=== PATIENT | female | born 1995 | race Caucasian/White ===

== ENCOUNTER 2020-02-18 07:00 | Outpatient (CLI) | payer OTHER ==
[2020-02-18 15:46] LABS: BILIRUBIN,URINE NEGATIVE (NEGATIVE); GLUCOSE, URINE (UA) NEGATIVE (NEGATIVE); KETONES,URINE (UA) NEGATIVE (NEGATIVE); LEUKOCYTE ESTERASE, URINE NEGATIVE (NEGATIVE); NITRITE,URINE NEGATIVE (NEGATIVE); OCCULT BLOOD,URINE NEGATIVE (NEGATIVE); PH,URINE 6.5 PH (5.0-7.5); PROTEIN,URINE NEGATIVE (NEGATIVE); UROBILINOGEN,URINE 0.2 (NORMAL) E.U./dL (NORMAL)
[2020-02-18 15:53] LABS: BACTERIA,URINE None Seen /HPF (None Seen); CLARITY,URINE CLEAR (CLEAR); RBC,URINE None Seen /HPF (0-5); SQUAMOUS EPITHELIAL CELL,UR MOD Squamous (<= Few)
== END 2020-02-18 23:59 | disposition home or self-care (01) ==
LOC: LAB.R 07:00
PROVIDERS: ATTEND Nurse Practitioner Obstetrics & Gynecology
DX: Z34.90 Encounter for supervision of normal pregnancy, unspecified, unspecified trimester (principal)
CPT/HCPCS: 81001; 87086

== ENCOUNTER 2020-02-24 13:16 | Outpatient (CLI) | payer OTHER | END 2020-02-24 23:59 | disposition home or self-care (01) | LOC: LAB.WCP 13:16 | PROVIDERS: ATTEND Nurse Practitioner Obstetrics & Gynecology | DX: O20.9 Hemorrhage in early pregnancy, unspecified (principal) | CPT/HCPCS: 36415; 84702; 86900; 86901 ==

== ENCOUNTER 2020-02-26 08:24 | Outpatient (CLI) | payer OTHER ==
--- NOTE | 2020-02-26 09:18 | Ultrasound Report ---
PROCEDURE: OB First Trimester INDICATIONS: SUPERVISION OF NORMAL OUTSIDE/PRIOR DATING DATA: Last menstrual period (LMP): 01/06/2020. LMP-based estimated date of delivery (ANDREA): 10/12/2020. First dating scan (date and location): 02/26/2020. Estimated date of delivery (ANDREA) from first dating scan: 10/13/2020. TECHNIQUE: Real-time scanning was performed of the fetus and maternal pelvic organs, with image documentation. COMPARISON: FINDINGS: Embryo: There is a gestational sac at the uterine fundus measuring 2.2 cm. Within the gestational sa c there is a embryo measuring 1.1 cm. These measurements correspond to an average ultrasound age of 7 weeks 1 day. heart rate is detected at 162 bpm. Measurement variability in dating: +/- 4 weeks by LMP, +/- 7 days by mean sac diameter (use before 6 weeks gestation if crown-rump length not able to be measured), +/- 5 days by crown-rump length (6-12 weeks gestation). Maternal organs: Ovaries unremarkable. Limited images through the kidneys demonstrate no hydronephr osis. IMPRESSION: Single live intrauterine gestation with average ultrasound age of 7 weeks 1 day. Reviewed by: Berny Sanders MD on 02/26/2020 9:16 AM PST Approved by: Berny Sanders MD on 02/26/2020 9:16 AM PST Station ID: [id number]
== END 2020-02-26 08:25 | disposition home or self-care (01) ==
LOC: DI 08:24
PROVIDERS: ATTEND Obstetrics & Gynecology
DX: Z34.91 Encounter for supervision of normal pregnancy, unspecified, first trimester (principal)

== ENCOUNTER 2020-03-17 08:00 | Outpatient (CLI) | payer OTHER ==
[2020-03-17 22:12] LABS: TRICHOMONAS VAGINALIS DNA NEGATIVE (NEGATIVE)
== END 2020-03-17 23:59 | disposition home or self-care (01) ==
LOC: LAB.R 08:00
PROVIDERS: ATTEND Obstetrics & Gynecology
DX: Z11.3 Encounter for screening for infections with a predominantly sexual mode of transmission (principal)
CPT/HCPCS: 87491; 87591; 87661

== ENCOUNTER 2020-04-02 08:00 | Outpatient (CLI) | payer OTHER ==
[2020-04-02 18:12] LABS: BASOPHILS % (AUTO) 0.2 %; EOSINOPHILS # (AUTO) 0.1 10^3/uL (0.0-0.7); EOSINOPHILS % (AUTO) 0.7 %; HGB - HEMOGLOBIN 12.9 g/dL (12.0-16.0); LYMPHOCYTES # (AUTO) 2.2 10^3/uL (1.5-3.5); LYMPHOCYTES % (AUTO) 20.1 %; MEAN CORPUSCULAR HEMOGLOBIN 27.9 pg (27.0-31.0); MEAN CORPUSCULAR HGB CONC 33.9 g/dL (32.0-36.0); MEAN CORPUSCULAR VOLUME 82.5 fL (81.0-99.0); MONOCYTES # (AUTO) 0.6 10^3/uL (0.0-1.0); MONOCYTES % (AUTO) 5.3 %; NEUTROPHILS % (AUTO) 73.4 %; PLT - PLATELET COUNT 352 10^3/uL (130-450); RED BLOOD COUNT 4.62 10^6/uL (4.20-5.40); RED CELL DISTRIBUTION WIDTH 12.5 % (12.0-15.0); WHITE BLOOD COUNT 10.9 x10^3/uL (4.8-10.8)
[2020-04-02 18:16] LABS: ALBUMIN 3.7 g/dL (3.2-5.5); BILIRUBIN,TOTAL 0.5 mg/dL (0.2-1.0); CALCIUM 9.2 mg/dL (8.5-10.3); CREATININE 0.7 mg/dL (0.4-1.0); TOTAL PROTEIN 7.4 g/dL (6.7-8.2)
[2020-04-03 09:17] LABS: HIV AG/AB 4TH GEN NON-REACTIVE (NON-REACTIVE)
[2020-04-03 12:52] LABS: HEPATITIS C ANTIBODY NON-REACTIVE (NON-REACTIVE)
[2020-04-03 12:53] LABS: HEPATITIS B SURFACE ANTIGEN NON-REACTIVE (NON-REACTIVE)
== END 2020-04-02 23:59 ==
LOC: LAB.WCP 08:00
PROVIDERS: ATTEND Obstetrics & Gynecology
DX: O16.9 Unspecified maternal hypertension, unspecified trimester (principal); Z36.89 Encounter for other specified antenatal screening
CPT/HCPCS: 36415; 80053; 81599; 85025; 86592; 86762; 86787; 86803; 86850; 86900; 86901; 87340; 87389

== ENCOUNTER 2020-04-04 07:00 | Outpatient (CLI) | payer OTHER ==
[2020-04-04 14:16] LABS: CREATININE 24 HOUR,URINE 1632 mg/24h (600-1800); CREATININE,URINE 61.6 mg/dL; TOTAL VOLUME 24HRS,URINE 2650 mL
[2020-04-04 14:18] LABS: TOTAL PROTEIN,URINE TIMED < 6 mg/dL
== END 2020-04-04 23:59 | disposition home or self-care (01) ==
LOC: LAB.R 07:00
PROVIDERS: ATTEND Obstetrics & Gynecology
DX: O16.9 Unspecified maternal hypertension, unspecified trimester (principal)
CPT/HCPCS: 82570; 84156

== ENCOUNTER 2020-04-23 08:00 | Outpatient (CLI) | payer OTHER ==
[2020-04-27 08:16] LABS: AFP MOM 1.72; AGE RISK DOWN SYNDROME 1 IN 1040; CALC'D GESTATIONAL AGE 15.4 weeks; CIGARETTE SMOKER? NOT GIVEN; DONOR AGE: EGG RETRIEVAL NOT GIVEN; DONOR EGG NO; ESTRIOL MOM 1.46; HCG MOM 1.63; HX OF NEURAL TUBE DEFECTS NO; INHIBIN A MOM 0.98; INSULIN DEPEND DIABETIC NO; MATERNAL WEIGHT 244 lbs; MSS DOWN SYNDROME RISK <1 IN 5000; MSS3 TRISOMY 18 RISK <1 IN 5000; NUMBER OF FETUSES 1; PREV PREGNANCY DOWN SYND NO; RISK FOR ONTD 1 IN 1551
== END 2020-04-23 23:59 | disposition home or self-care (01) ==
LOC: LAB.WCP 08:00
PROVIDERS: ATTEND Obstetrics & Gynecology
DX: O09.90 Supervision of high risk pregnancy, unspecified, unspecified trimester (principal); O16.9 Unspecified maternal hypertension, unspecified trimester; Z36.89 Encounter for other specified antenatal screening
CPT/HCPCS: 36415; 81220; 81243; 81329; 81511; 81599

== ENCOUNTER 2020-05-27 13:55 | Outpatient (CLI) | payer OTHER ==
--- NOTE | 2020-05-28 17:18 | Ultrasound Report ---
PROCEDURE: OB Detailed Eval INDICATIONS: SCREENING, HIGH RISK OUTSIDE/PRIOR DATING DATA: Last menstrual period (LMP): 01/06/2020. LMP-based estimated date of delivery (ANDREA): 10/12/2020. First dating scan (date and location): 02/26/2020. Estimated date of delivery (ANDREA) from first dating scan: 10/13/2020. Provider stated ANDREA is 10/12/2020. TECHNIQUE: Real-time scanning was performed of the fetus, with image documentation and biometric measurements. Endovaginal scanning: No COMPARISON: None. FINDINGS: General: A single living intrauterine gestation is present. Presentation: Transverse Placenta: Placental position is posterior fundal, without previa. Amniotic fluid index: 15.2 cm, normal for gestational age. heart rate: 141 beats per minute. Maternal cervical canal: 3.9 cm long; normal length is 2.5 cm or more. biometrics: Biparietal diameter: 20 weeks due to Head circumference: 20 weeks 3 days Abdominal circumference: 20 weeks 2 days Femur length: 20 weeks 1 day Estimated gestational age from initial scan: not applicable. Composite gestational age from present scan: 20 weeks 2 days Estimated weight and percentile: 341 g; 42nd percentile Measurement variability in biometric dating: +/- 10 days from 12-20 weeks gestation, +/- 2 weeks from 20-30 weeks gestation, +/- 3 weeks at 30 weeks gestation or later. Anatomic survey: Neuro: Ventricles are normal at less than 10 mm. Cisterna magna is normal at 3-11 mm. Cerebellum i s normal in size and morphology. Nuchal skin fold: Normal at less than 6 mm between 14 and 20 weeks gestational age. Face: Nose and lips, facial profile are normal. Spine: No evidence for spina bifida. Heart: Suboptimally visualized. Diaphragm: Suboptimally visualized. Stomach: Left-sided stomach is present. Kidneys: Suboptimally visualized. Cord: 3 vessel cord has orthotopic insertion. Bladder: Normal in size. Extremities: All 4 extremities are visualized. IMPRESSION: Single living IUP redemonstrated and interval growth is normal. heart diaphragm and kidneys not well visualized; otherwise normal anatomy. Follow-up sherie mmended. Reviewed by: EFRAÍN Gross on 05/28/2020 5:17 PM PDT Approved by: Joaquin Rdz MD on 05/28/2020 5:17 PM PDT Station ID: [id number]
== END 2020-05-27 13:56 | disposition home or self-care (01) ==
LOC: DI 13:55
PROVIDERS: ATTEND Obstetrics & Gynecology
DX: O09.92 Supervision of high risk pregnancy, unspecified, second trimester (principal); Z36.89 Encounter for other specified antenatal screening; Z3A.20 20 weeks gestation of pregnancy

== ENCOUNTER 2020-06-11 14:09 | Outpatient (CLI) | payer OTHER ==
--- NOTE | 2020-06-11 16:28 | Ultrasound Report ---
PROCEDURE: OB F/U or Repeat INDICATIONS: SUPERVISION HIGH RISK OUTSIDE/PRIOR DATING DATA: Last menstrual period (LMP): 01/06/2020. LMP-based estimated date of delivery (ANDREA): 10/12/2020. First dating scan (date and location): 02/26/2020. Estimated date of delivery (ANDREA) from first dating scan: 10/13/2020. TECHNIQUE: Real-time scanning was performed of the fetus, with image documentation and biometric measurements. Endovaginal scanning: Not performed COMPARISON: None. FINDINGS: General: A single living intrauterine gestation is present. Presentation: Transverse with head to maternal left Placenta: Placental position is posterior fundal, without previa. Amniotic fluid index: 12.6 cm, 25th percentile for gestational age. heart rate: 141 beats per minute. Maternal cervical canal: 5.1 cm long; normal length is 2.5 cm or more. Estimated gestational age from initial scan: 22 weeks 3 days Other: Limited survey of anatomy is limited by maternal body habitus and position, and in cludes grossly normal four-chamber heart, left and right ventricular outflow tracts, and bilateral re nal regions. IMPRESSION: 1. Single living intrauterine gestation. 2. Limited but grossly normal evaluation of the heart, ventricular outflow tracts, and kidneys. Reviewed by: Tariq Rushing MD on 06/11/2020 4:27 PM PDT Approved by: Tariq Rushing MD on 06/11/2020 4:27 PM PDT Station ID: [id number]
== END 2020-06-11 14:10 | disposition home or self-care (01) ==
LOC: DI 14:09
PROVIDERS: ATTEND Obstetrics & Gynecology
DX: O09.92 Supervision of high risk pregnancy, unspecified, second trimester (principal); Z3A.22 22 weeks gestation of pregnancy

== ENCOUNTER 2020-07-22 08:00 | Outpatient (CLI) | payer OTHER ==
[2020-07-22 12:01] LABS: HCT - HEMATOCRIT 37.2 % (37.0-47.0); HGB - HEMOGLOBIN 12.6 g/dL (12.0-16.0); MEAN CORPUSCULAR HEMOGLOBIN 28.2 pg (27.0-31.0); MEAN CORPUSCULAR HGB CONC 33.9 g/dL (32.0-36.0); MEAN CORPUSCULAR VOLUME 83.2 fL (81.0-99.0); MEAN PLATELET VOLUME 9.8 fL (7.9-10.8); RED BLOOD COUNT 4.47 10^6/uL (4.20-5.40); WHITE BLOOD COUNT 9.9 x10^3/uL (4.8-10.8)
== END 2020-07-22 23:59 | disposition home or self-care (01) ==
LOC: LAB.WCP 08:00
PROVIDERS: ATTEND Obstetrics & Gynecology
DX: Z36.89 Encounter for other specified antenatal screening (principal)
CPT/HCPCS: 36415; 82950; 85027

== ENCOUNTER 2020-08-20 12:07 | Outpatient (CLI) | payer OTHER ==
[2020-08-20 12:35] LABS: BILIRUBIN,URINE NEGATIVE (NEGATIVE); GLUCOSE, URINE (UA) NEGATIVE (NEGATIVE); KETONES,URINE (UA) NEGATIVE (NEGATIVE); LEUKOCYTE ESTERASE, URINE NEGATIVE (NEGATIVE); NITRITE,URINE NEGATIVE (NEGATIVE); OCCULT BLOOD,URINE NEGATIVE (NEGATIVE); PROTEIN,URINE NEGATIVE (NEGATIVE); UROBILINOGEN,URINE 0.2 (NORMAL) E.U./dL (NORMAL)
[2020-08-20 12:40] LABS: CLARITY,URINE CLEAR (CLEAR)
[2020-08-20 12:54] LABS: CREATININE,URINE 87.2 mg/dL; PROTEIN/CREATININE RATIO,URINE 0.1 (<=0.2)
[2020-08-20 12:57] LABS: BASOPHILS % (AUTO) 0.2 %; EOSINOPHILS # (AUTO) 0.1 10^3/uL (0.0-0.7); EOSINOPHILS % (AUTO) 0.5 %; HCT - HEMATOCRIT 38.2 % (37.0-47.0); HGB - HEMOGLOBIN 12.9 g/dL (12.0-16.0); LYMPHOCYTES # (AUTO) 2.1 10^3/uL (1.5-3.5); LYMPHOCYTES % (AUTO) 17.1 %; MEAN CORPUSCULAR HEMOGLOBIN 27.6 pg (27.0-31.0); MEAN CORPUSCULAR HGB CONC 33.8 g/dL (32.0-36.0); MEAN CORPUSCULAR VOLUME 81.8 fL (81.0-99.0); MEAN PLATELET VOLUME 9.4 fL (7.9-10.8); MONOCYTES # (AUTO) 0.7 10^3/uL (0.0-1.0); MONOCYTES % (AUTO) 6.1 %; NEUTROPHILS # (AUTO) 9.2 10^3/uL (1.5-6.6); NEUTROPHILS % (AUTO) 75.9 %; PLT - PLATELET COUNT 355 10^3/uL (130-450); RED BLOOD COUNT 4.67 10^6/uL (4.20-5.40); RED CELL DISTRIBUTION WIDTH 12.3 % (12.0-15.0); WHITE BLOOD COUNT 12.1 x10^3/uL (4.8-10.8)
[2020-08-20 13:09] LABS: ALBUMIN 3.4 g/dL (3.2-5.5); ALBUMIN/GLOBULIN RATIO 0.8 (1.0-2.2); BILIRUBIN,TOTAL 0.4 mg/dL (0.2-1.0); CALCIUM 9.8 mg/dL (8.5-10.3); CREATININE 0.8 mg/dL (0.4-1.0); POTASSIUM 4.1 mmol/L (3.5-5.0); TOTAL PROTEIN 7.6 g/dL (6.7-8.2)
--- NOTE | 2020-08-20 13:24 | PROVIDER PROGRESS NOTE ---
- HPI Chief Complaint: Hypertension/PIH Current : Current EDU 10/12/20 Gestation 32 Weeks and 3 Days 1 Para 0 Vital Signs Temperature 99.1 F 08/20/20 12:18 Heart Rate 82 08/20/20 12:18 Respiratory Rate 22 08/20/20 12:18 Blood Pressure 123/94 H 08/20/20 12:18 O2 Saturation 100 08/20/20 12:18 Temperature 99.1 F 08/20/20 12:18 Heart Rate 82 08/20/20 12:18 Respiratory Rate 22 08/20/20 12:18 Blood Pressure 119/79 08/20/20 12:37 O2 Saturation 100 08/20/20 12:18 - Exam 25 yo at 32 05/09.Patient woke up with left sided headache that progressed and she felt her vision became blurry. She took her labetalol and waited 2 hours and blood pressure was 140/90. Patient states her vision is no longer blurry and her headache is currently gone. Patient reports good movement. Patient denies contractions, SROM, or vaginal bleeding.Patient feels like hands and face are swollen today. Her ankles and feet are not. Patient has had CHTN prior to becoming . Patient has been on Labetalol 100mg BID and baby aspirin throughout the . O-117/62, 127/76, 119/79, 107/70. General: Patient is resting comfortably and is not in distress. Chest: Clear to auscultation. No rales, wheezes or rhonchi. Good breath sounds in all garcia. Heart: RRR without murmur or gallop. Abdomen: Soft, non-tender to palpation, gravid. Ext:No edema pretibial DTR's: Could not illicit reflex, not hyperreflexic. Labs: Protein/Creatinine ratio is 0.1. Monitor strip: Baseline 130bpm with moderate variability and accelerations 15X15 present. No decelerations. No contractions. Category I monitor strip. Reactive NST. A-IUP 32 05/09, Chronic Hypertension P- Increase Labetalol to 200mg po BID and 100mg at bedtime. Keep all scheduled appointments. Call for any problems. - Procedures NST Procedure: NST Procedure Start Date 08/20/20 Start Time 12:20 Stop Time 13:00 Vibroacoustic Stimulation Used No Patient States Movement Yes
[2020-08-20 13:55] VITALS: BP 117/83
== END 2020-08-20 13:55 | disposition home or self-care (01) ==
LOC: WFO 12:07 → FBP 12:08 → WFO 13:55
PROVIDERS: ATTEND Obstetrics & Gynecology
DX: O10.913 Unspecified pre-existing hypertension complicating pregnancy, third trimester (principal); Z3A.32 32 weeks gestation of pregnancy; Z79.82 Long term (current) use of aspirin; Z79.899 Other long term (current) drug therapy
CPT/HCPCS: 36415; 59025; 80053; 81001; 81003; 82570; 84156; 85025; 87086; 99215

== ENCOUNTER 2020-08-30 08:07 | Outpatient (CLI) | payer OTHER ==
[2020-08-30 08:55] LABS: BASOPHILS % (AUTO) 0.1 %; EOSINOPHILS # (AUTO) 0.1 10^3/uL (0.0-0.7); EOSINOPHILS % (AUTO) 0.7 %; HCT - HEMATOCRIT 36.2 % (37.0-47.0); HGB - HEMOGLOBIN 12.4 g/dL (12.0-16.0); LYMPHOCYTES # (AUTO) 1.7 10^3/uL (1.5-3.5); LYMPHOCYTES % (AUTO) 18.9 %; MEAN CORPUSCULAR HEMOGLOBIN 27.9 pg (27.0-31.0); MEAN CORPUSCULAR HGB CONC 34.3 g/dL (32.0-36.0); MEAN CORPUSCULAR VOLUME 81.3 fL (81.0-99.0); MEAN PLATELET VOLUME 9.4 fL (7.9-10.8); MONOCYTES # (AUTO) 0.4 10^3/uL (0.0-1.0); MONOCYTES % (AUTO) 4.6 %; NEUTROPHILS # (AUTO) 6.6 10^3/uL (1.5-6.6); NEUTROPHILS % (AUTO) 75.4 %; PLT - PLATELET COUNT 296 10^3/uL (130-450); RED BLOOD COUNT 4.45 10^6/uL (4.20-5.40); RED CELL DISTRIBUTION WIDTH 12.4 % (12.0-15.0); WHITE BLOOD COUNT 8.7 x10^3/uL (4.8-10.8)
[2020-08-30 09:08] LABS: ALBUMIN 3.1 g/dL (3.2-5.5); ALBUMIN/GLOBULIN RATIO 0.8 (1.0-2.2); BILIRUBIN,TOTAL 0.2 mg/dL (0.2-1.0); CALCIUM 9.1 mg/dL (8.5-10.3); CREATININE 0.7 mg/dL (0.4-1.0); POTASSIUM 4.1 mmol/L (3.5-5.0); TOTAL PROTEIN 7.1 g/dL (6.7-8.2)
[2020-08-30 09:45] LABS: CREATININE,URINE 81.9 mg/dL
[2020-08-30 09:46] LABS: TOTAL PROTEIN,URINE TIMED < 6 mg/dL
[2020-08-30 10:03] VITALS: BP 106/67
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
== END 2020-08-30 10:35 | disposition home or self-care (01) ==
LOC: WFO 08:07 → FBP 08:09 → WFO 10:35
PROVIDERS: ATTEND Obstetrics & Gynecology
DX: O99.891 Other specified diseases and conditions complicating pregnancy (principal); R03.0 Elevated blood-pressure reading, without diagnosis of hypertension; R51.9 Headache, unspecified; O16.3 Unspecified maternal hypertension, third trimester; Z3A.33 33 weeks gestation of pregnancy; Z79.899 Other long term (current) drug therapy; Z79.82 Long term (current) use of aspirin
CPT/HCPCS: 36415; 59025; 80053; 82570; 84156; 85025; 99214; 99215

== ENCOUNTER 2020-09-08 12:10 | Outpatient (CLI) | payer OTHER ==
[2020-09-08 13:07] LABS: BASOPHILS % (AUTO) 0.2 %; EOSINOPHILS # (AUTO) 0.1 10^3/uL (0.0-0.7); EOSINOPHILS % (AUTO) 0.6 %; HCT - HEMATOCRIT 37.6 % (37.0-47.0); HGB - HEMOGLOBIN 12.5 g/dL (12.0-16.0); LYMPHOCYTES # (AUTO) 2.1 10^3/uL (1.5-3.5); LYMPHOCYTES % (AUTO) 20.5 %; MEAN CORPUSCULAR HEMOGLOBIN 27.3 pg (27.0-31.0); MEAN CORPUSCULAR HGB CONC 33.2 g/dL (32.0-36.0); MEAN CORPUSCULAR VOLUME 82.1 fL (81.0-99.0); MEAN PLATELET VOLUME 10.8 fL (7.9-10.8); MONOCYTES # (AUTO) 0.6 10^3/uL (0.0-1.0); MONOCYTES % (AUTO) 6.1 %; NEUTROPHILS # (AUTO) 7.2 10^3/uL (1.5-6.6); NEUTROPHILS % (AUTO) 72.2 %; PLT - PLATELET COUNT 205 10^3/uL (130-450); RED BLOOD COUNT 4.58 10^6/uL (4.20-5.40); RED CELL DISTRIBUTION WIDTH 12.8 % (12.0-15.0)
[2020-09-08 13:11] LABS: ALBUMIN 3.3 g/dL (3.2-5.5); ALBUMIN/GLOBULIN RATIO 0.8 (1.0-2.2); BILIRUBIN,TOTAL 0.4 mg/dL (0.2-1.0); CALCIUM 9.4 mg/dL (8.5-10.3); CREATININE 0.8 mg/dL (0.4-1.0); TOTAL PROTEIN 7.7 g/dL (6.7-8.2)
[2020-09-08 13:12] LABS: POTASSIUM 4.4 mmol/L (3.5-5.0)
[2020-09-08 13:56] LABS: CREATININE,URINE 59.5 mg/dL
[2020-09-08 14:25] LABS: TOTAL PROTEIN,URINE TIMED < 6 mg/dL
[2020-09-08 15:17] VITALS: BP 120/76
--- NOTE | 2020-09-08 15:27 | Ultrasound Report ---
PROCEDURE: OB F/U or Repeat INDICATIONS: CHTN in OUTSIDE/PRIOR DATING DATA: Last menstrual period (LMP): 01/06/2020. LMP-based estimated date of delivery (ANDREA): 10/12/2020. First dating scan (date and location): 12/27/2019. Estimated date of delivery (ANDREA) from first dating scan: 10/13/2020. The below data below was generated using the clinical ANDREA of 10/12/2020 TECHNIQUE: Real-time scanning was performed of the fetus, with image documentation and biometric measurements. COMPARISON: OB ultrasound 05/27/2020, 06/11/2020, 02/26/2020 FINDINGS: General: A single living intrauterine gestation is present. Presentation: Vertex Placenta: Placental position is posterior, without previa. Amniotic fluid index: 13.5 cm, largest pocket 4.4 cm. heart rate: 127 beats per minute. Maternal cervical canal: 3.1 cm long; normal length is 2.5 cm or more. biometrics: Biparietal diameter: 8.6 cm 34 weeks 4 Head circumference: 31.6 cm 35 weeks 3 days Abdominal circumference: 29.1 cm 33 weeks 1 day Femur length: 6.7 cm 34 weeks 5 days Estimated gestational age from initial scan: 35 weeks 1 day Composite gestational age from present scan: 34 weeks 1 day Estimated weight and percentile: 2301 g 17th percentile Measurement variability in biometric dating: +/- 10 days from 12-20 weeks gestation, +/- 2 weeks from 20-30 weeks gestation, +/- 3 weeks at 30 weeks gestation or more. Other: Not applicable. IMPRESSION: 1. Single live intrauterine with ultrasound gestational age today of 34 weeks 1 day. 2. BEAU measures 13.5 cm with largest pocket measuring 4.4 cm. 3. Growth is at the 17th percentile. It is noted at the 42nd percentile on 05/27/2020 and not calculat ed on 06/11/2020. Reviewed by: Pallavi Anderson MD on 09/08/2020 3:25 PM PDT Approved by: Pallavi Anderson MD on 09/08/2020 3:25 PM PDT Station ID: [id number]
--- NOTE | 2020-09-11 15:46 | PROVIDER PROGRESS NOTE ---
- HPI Chief Complaint: Hypertension/PIH Current : Current EDU 10/12/20 Gestation 35 Weeks and 1 Days 1 Para 0 Vital Signs Heart Rate 75 09/08/20 12:19 Respiratory Rate 17 09/08/20 12:19 Blood Pressure 108/67 09/08/20 12:19 Temperature Heart Rate 78 09/08/20 14:15 Respiratory Rate 17 09/08/20 12:19 Blood Pressure 120/76 09/08/20 14:15 O2 Saturation - Exam VS 78 17 123/84 GEN: NAD HEAD: NCAT EYES: No scleral icterus or conjunctival injection CV: RRR RESP: CTAB, normal effort ABD: gravid, S&NT/ND PSYCH: appropriate affect NEURO: alert and oriented, normal gait and coordination EXT: WWP - Procedures OB Procedure Performed: NST Diagnosis/Indication for NST: Pre- Hypertension NST Procedure: NST Procedure Start Date 09/08/20 Start Time 12:20 Stop Time 13:53 Vibroacoustic Stimulation Used No Patient States Movement Yes EFM 120 mod jocy 15x15 accels no decels TOCO; quiet Service Date of procedure: 09/08/20 - Plan Plan: Patient is a 25 yo at 35+1 wga with CHTN on a beta deo Seen in clinic with BP of 138/110 and persistently elevated on repeat exam. Sent to triage for pre-e evaluation. BPs wnl over 2 hours of observation. PIH labs wnl Neg P:C Formal us showed EFW 17%ile and BEAU 13.5 Negative evaluation for CHTN with ENRRIQUE -Recommend twice weekly NST and weekly BEAU -IOL at 39 weeks in the absence of PE with ssevere features -No change in labetalol dosing DX: IUP at 35+1 CHTN DOS: 09/08/20 NST read 09/08/20
== END 2020-09-08 15:06 | disposition home or self-care (01) ==
LOC: WFO 12:10 → FBP 12:13 → WFO 15:06
PROVIDERS: ATTEND Obstetrics & Gynecology
DX: O10.913 Unspecified pre-existing hypertension complicating pregnancy, third trimester (principal); Z3A.35 35 weeks gestation of pregnancy
CPT/HCPCS: 36415; 59025; 80053; 82570; 84156; 85025; 99215

== ENCOUNTER 2020-09-14 13:03 | Outpatient (CLI) | payer OTHER ==
[2020-09-14 13:34] VITALS: BP 118/86
--- NOTE | 2020-09-14 16:10 | PROCEDURE REPORT ---
- HPI Diagnosis/Indication for NST: Gestational Hypertension Current EDU 10/12/20 Gestation 36 Weeks and 0 Days 1 Para 0 Vital Signs Temperature 98.2 F 09/14/20 13:15 Heart Rate 81 09/14/20 13:15 Respiratory Rate 18 09/14/20 13:15 Blood Pressure 118/86 H 09/14/20 13:15 O2 Saturation 97 09/14/20 13:15 Temperature 98.2 F 09/14/20 13:15 Heart Rate 81 09/14/20 13:15 Respiratory Rate 18 09/14/20 13:15 Blood Pressure 118/86 H 09/14/20 13:15 O2 Saturation 97 09/14/20 13:15 - NST Procedure NST Procedure Start Date 09/14/20 Start Time 13:14 Stop Time 13:38 Vibroacoustic Stimulation Used No Patient States Movement Yes EFM 125 mod jocy 15x15 accels no decels TOCO: quiet - Results and Plan Findings/Impression: 25 yo at 36+0 wga with affected by GHTN here for NST Cat I tracing Cont with twice weekyl NSt and weekly BEAU DX: GHTN IUP at 36+0 wga NST read 09/14/20 DOS: 09/14/20
== END 2020-09-14 13:43 | disposition home or self-care (01) ==
LOC: WFO 13:03 → FBP 13:07 → WFO 13:43
PROVIDERS: ATTEND Obstetrics & Gynecology
DX: O13.3 Gestational [pregnancy-induced] hypertension without significant proteinuria, third trimester (principal); Z3A.36 36 weeks gestation of pregnancy
CPT/HCPCS: 59025

== ENCOUNTER 2020-09-17 15:34 | Outpatient (CLI) | payer OTHER ==
--- NOTE | 2020-09-17 17:01 | Ultrasound Report ---
PROCEDURE: OB Limited INDICATIONS: SUPERVISION HIGH RISK PRENANCY OUTSIDE/PRIOR DATING DATA: Last menstrual period (LMP): 01/06/2020. LMP-based estimated date of delivery (ANDREA): 10/12/2020. First dating scan (date and location): 02/26/2020. Luis Eduardo Corona. Estimated date of delivery (ANDREA) from first dating scan: 10/13/2020. The below data below was generated using the provider stated ANDREA of 10/12/2020 None. TECHNIQUE: Real-time scanning was performed of the fetus, with image documentation. Endovaginal scanning: COMPARISON: FINDINGS: A single living intrauterine gestation is present. Presentation: Vertex Placenta: Placental position is posterior, without previa. Amniotic fluid index: 8.6 cm. Largest pocket is 3.9 cm. heart rate: 133 beats per minutes. Maternal cervical canal: 2.6 cm long; normal length is 2.5 cm or more. Estimated gestational age from initial scan: 36 weeks 3 days. anatomy: The chest/diaphragm, stomach/abdomen, right renal region, left renal region, and urin ozzy bladder/pelvis were evaluated on this study and have a normal appearance. IMPRESSION: 1. Amniotic fluid index is at the low limits of normal measuring 8.6 cm. Deepest pocket is 3.9 cm. 2. The cervix is not well seen but measures approximately 2.6 cm in length. Reviewed by: Conrad Park on 09/17/2020 5:00 PM PDT Approved by: Conrad Park on 09/17/2020 5:00 PM PDT Station ID: [id number]
== END 2020-09-17 15:35 | disposition home or self-care (01) ==
LOC: DI 15:34
PROVIDERS: ATTEND Obstetrics & Gynecology
DX: O09.90 Supervision of high risk pregnancy, unspecified, unspecified trimester (principal); O16.3 Unspecified maternal hypertension, third trimester; Z3A.36 36 weeks gestation of pregnancy

== ENCOUNTER 2020-09-17 16:28 | Outpatient (CLI) | payer OTHER ==
[2020-09-17 16:47] VITALS: BP 115/85
--- NOTE | 2020-09-18 13:30 | PROCEDURE REPORT ---
- HPI Diagnosis/Indication for NST: Pre- Hypertension Current EDU 10/12/20 Gestation 36 Weeks and 3 Days 1 Para 0 Vital Signs Heart Rate 84 09/17/20 16:45 Respiratory Rate 18 09/17/20 16:45 Blood Pressure 115/85 H 09/17/20 16:45 O2 Saturation 97 09/17/20 16:45 Temperature Heart Rate 84 09/17/20 16:45 Respiratory Rate 18 09/17/20 16:45 Blood Pressure 115/85 H 09/17/20 16:45 O2 Saturation 97 09/17/20 16:45 - NST Procedure NST Procedure Start Date 09/17/20 Start Time 16:40 Stop Time 17:10 Vibroacoustic Stimulation Used No Patient States Movement Yes 25yo 36 3/7 with Pre- Hypertension presents for NST. NST: Baseline 135bpm, Moderate variability and accelerations are present. No Deceleraation. NST is Reactive and Category I Patient to continue current medications and follow-up as scheduled. - Results and Plan Findings/Impression: Reactive NST Follow-up as scheduled.
== END 2020-09-17 17:15 | disposition home or self-care (01) ==
LOC: WFO 16:28 → FBP 16:34 → WFO 17:15
PROVIDERS: ATTEND Obstetrics & Gynecology
DX: O10.913 Unspecified pre-existing hypertension complicating pregnancy, third trimester (principal); O09.93 Supervision of high risk pregnancy, unspecified, third trimester; Z3A.36 36 weeks gestation of pregnancy
CPT/HCPCS: 59025

== ENCOUNTER 2020-09-21 13:12 | Outpatient (CLI) | payer OTHER ==
[2020-09-21 13:29] VITALS: BP 112/57
--- NOTE | 2020-09-21 17:11 | PROCEDURE REPORT ---
- HPI Diagnosis/Indication for NST: Pre- Hypertension Current EDU 10/12/20 Gestation 37 Weeks and 0 Days 1 Para 0 Vital Signs Temperature 98.4 F 09/21/20 13:25 Heart Rate 89 09/21/20 13:25 Respiratory Rate 18 09/21/20 13:25 Blood Pressure 112/57 L 09/21/20 13:25 O2 Saturation 97 09/21/20 13:25 Temperature 98.4 F 09/21/20 13:25 Heart Rate 89 09/21/20 13:25 Respiratory Rate 18 09/21/20 13:25 Blood Pressure 112/57 L 09/21/20 13:25 O2 Saturation 97 09/21/20 13:25 - NST Procedure NST Procedure Start Date 09/21/20 Start Time 13:24 Stop Time 13:48 Vibroacoustic Stimulation Used No Patient States Movement Yes Patient is without complaints. Patient is taking her 1abetalol. at 37 0/7 weeks today. Patient reports good movement. O- BP is 112/57 NST: Baseline is 135, moderate variability. Accelerations 15X15 present. No decelerations. No contractions. Reactive NST that is Categoy I. - Results and Plan Findings/Impression: IUP 37 0/7 with Chronic Hypertension prior to . P- Follow-up with Dr. Brizuela as scheduled tomorrow. Continue twice weekly NSTs. Call for any problems or concerns.
== END 2020-09-21 13:50 | disposition home or self-care (01) ==
LOC: WFO 13:12 → FBP 13:15 → WFO 13:50
PROVIDERS: ATTEND Obstetrics & Gynecology
DX: O10.913 Unspecified pre-existing hypertension complicating pregnancy, third trimester (principal); Z3A.37 37 weeks gestation of pregnancy
CPT/HCPCS: 59025

== ENCOUNTER 2020-09-22 08:00 | Outpatient (CLI) | payer OTHER | END 2020-09-22 23:59 | disposition home or self-care (01) | LOC: LAB.WC 08:00 | PROVIDERS: ATTEND Obstetrics & Gynecology | DX: Z36.85 Encounter for antenatal screening for Streptococcus B (principal) | CPT/HCPCS: 87081; 87797 ==

== ENCOUNTER 2020-09-22 09:38 | Outpatient (CLI) | payer OTHER ==
[2020-09-22 10:25] LABS: BASOPHILS % (AUTO) 0.2 %; EOSINOPHILS # (AUTO) 0.1 10^3/uL (0.0-0.7); EOSINOPHILS % (AUTO) 0.7 %; HCT - HEMATOCRIT 35.7 % (37.0-47.0); HGB - HEMOGLOBIN 12.2 g/dL (12.0-16.0); LYMPHOCYTES # (AUTO) 1.7 10^3/uL (1.5-3.5); LYMPHOCYTES % (AUTO) 19.8 %; MEAN CORPUSCULAR HEMOGLOBIN 27.9 pg (27.0-31.0); MEAN CORPUSCULAR HGB CONC 34.2 g/dL (32.0-36.0); MEAN CORPUSCULAR VOLUME 81.5 fL (81.0-99.0); MEAN PLATELET VOLUME 9.8 fL (7.9-10.8); MONOCYTES # (AUTO) 0.7 10^3/uL (0.0-1.0); MONOCYTES % (AUTO) 7.5 %; NEUTROPHILS # (AUTO) 6.2 10^3/uL (1.5-6.6); NEUTROPHILS % (AUTO) 71.5 %; PLT - PLATELET COUNT 322 10^3/uL (130-450); RED BLOOD COUNT 4.38 10^6/uL (4.20-5.40); WHITE BLOOD COUNT 8.7 x10^3/uL (4.8-10.8)
[2020-09-22 10:29] LABS: CREATININE,URINE 295.9 mg/dL; PROTEIN/CREATININE RATIO,URINE 0.1 (<=0.2)
[2020-09-22 10:38] LABS: ALBUMIN/GLOBULIN RATIO 0.8 (1.0-2.2); BILIRUBIN,TOTAL 0.4 mg/dL (0.2-1.0); CALCIUM 9.4 mg/dL (8.5-10.3); CREATININE 0.8 mg/dL (0.4-1.0); POTASSIUM 4.2 mmol/L (3.5-5.0)
[2020-09-22 10:51] VITALS: BP 122/69
--- NOTE | 2020-10-04 19:44 | PROCEDURE REPORT ---
- HPI Diagnosis/Indication for NST: Pre- Hypertension Current EDU 10/12/20 Gestation 37 Weeks and 1 Days 1 Para 0 Vital Signs Temperature 98.2 F 09/22/20 09:51 Heart Rate 96 09/22/20 09:51 Respiratory Rate 17 09/22/20 09:51 Blood Pressure 130/94 H 09/22/20 09:51 O2 Saturation 97 09/22/20 09:51 Temperature 98.2 F 09/22/20 09:51 Heart Rate 96 09/22/20 09:51 Respiratory Rate 17 09/22/20 09:51 Blood Pressure 122/69 09/22/20 10:49 O2 Saturation 97 09/22/20 09:51 - NST Procedure NST Procedure Start Date 09/22/20 Start Time 09:50 Stop Time 10:10 Vibroacoustic Stimulation Used No Patient States Movement Yes EFM 135 mod jocy 15x15 accels no decels TOCO: quiet - Results and Plan Findings/Impression: Patient is a 25 yo at 37+1 wga with complicated by chronic hypertension here for NST Cat I tracing Cont with twice weekly NST and weekly BEAU Plan for IOL at 39 wga in the absence of ENRRIQUE DX: IUP at 37+1 wga Chronic hypertension NST read on 09/22/20 DOS 09/22/20
== END 2020-09-22 11:10 | disposition home or self-care (01) ==
LOC: WFO 09:38 → FBP 09:40 → WFO 11:10
PROVIDERS: ATTEND Obstetrics & Gynecology
DX: O10.913 Unspecified pre-existing hypertension complicating pregnancy, third trimester (principal); Z3A.37 37 weeks gestation of pregnancy; Z36.85 Encounter for antenatal screening for Streptococcus B
CPT/HCPCS: 36415; 59025; 80053; 82570; 84156; 85025; 87081; 87797; 99214; 99215

== ENCOUNTER 2020-09-24 15:29 | Outpatient (CLI) | payer OTHER ==
--- NOTE | 2020-09-24 16:20 | Ultrasound Report ---
PROCEDURE: OB Limited INDICATIONS: SUPERVISION OF HIGH RISK OUTSIDE/PRIOR DATING DATA: Last menstrual period (LMP): 01/06/2020. LMP-based estimated date of delivery (ANDREA): 10/12/2020. First dating scan (date and location): 02/26/2020. Estimated date of delivery (ANDREA) from first dating scan: 10/13/2020. The below data below was generated using the above ANDREA of 10/13/2020 TECHNIQUE: Real-time scanning was performed of the fetus, with image documentation. Endovaginal scanning: Not needed COMPARISON: Prior OB ultrasounds for this . FINDINGS: A single living intrauterine gestation is present. Presentation: Vertex Placenta: Placental position is posterior, without previa. Amniotic fluid index: 14.2 cm, normal for gestational age. heart rate: 138 beats per minutes. Maternal cervical canal is not well seen due to vertex presentation of the fetus. Estimated gestational age from initial scan: 37 weeks 3 days. IMPRESSION: Single living intrauterine gestation with normal amniotic fluid volume, posterior placen ta without previa and vertex presentation. Reviewed by: Joaquin Rdz MD on 09/24/2020 4:18 PM PDT Approved by: Joaquin Rdz MD on 09/24/2020 4:18 PM PDT Station ID: [id number]
== END 2020-09-24 15:30 | disposition home or self-care (01) ==
LOC: DI 15:29
PROVIDERS: ATTEND Obstetrics & Gynecology
DX: O09.93 Supervision of high risk pregnancy, unspecified, third trimester (principal); O16.3 Unspecified maternal hypertension, third trimester; Z3A.37 37 weeks gestation of pregnancy

== ENCOUNTER 2020-09-24 16:03 | Outpatient (CLI) | payer OTHER ==
[2020-09-24 16:22] VITALS: BP 137/82
--- NOTE | 2020-09-25 09:49 | PROCEDURE REPORT ---
- HPI Diagnosis/Indication for NST: Pre- Hypertension Current EDU 10/12/20 Gestation 37 Weeks and 3 Days 1 Para 0 Vital Signs Temperature 98.3 F 09/24/20 16:17 Heart Rate 72 09/24/20 16:17 Respiratory Rate 16 09/24/20 16:17 Blood Pressure 137/82 H 09/24/20 16:17 Temperature 98.3 F 09/24/20 16:17 Heart Rate 72 09/24/20 16:17 Respiratory Rate 16 09/24/20 16:17 Blood Pressure 137/82 H 09/24/20 16:17 O2 Saturation - NST Procedure NST Procedure Start Date 09/24/20 Start Time 16:15 Stop Time 16:44 Vibroacoustic Stimulation Used No Patient States Movement Yes 25yo at 37 3/7 here for NST due to Pre- CHTN. Patient reports good movement. Patient is not feeling contractions. NST: Baseline 130 with moderate Variability. Accelerations 15X15 present. No decelrations. Reactive NST and Category I monitor strip. A-IUP 37 3/7 with CHTN, P- Continue scheduled monitoring and keep all appointments. Call for any problems.
== END 2020-09-24 16:45 | disposition home or self-care (01) ==
LOC: WFO 16:03 → FBP 16:06 → WFO 16:45
PROVIDERS: ATTEND Obstetrics & Gynecology
DX: O10.913 Unspecified pre-existing hypertension complicating pregnancy, third trimester (principal); O09.93 Supervision of high risk pregnancy, unspecified, third trimester; Z3A.37 37 weeks gestation of pregnancy
CPT/HCPCS: 59025

== ENCOUNTER 2020-09-25 21:00 | Outpatient (CLI) | payer OTHER ==
[2020-09-25] MEDS ORDERED: LABETALOL 100 MG TABLET PO STA (21:47)
[2020-09-25 23:21] VITALS: BP 132/76
--- NOTE | 2020-11-12 15:52 | PROVIDER PROGRESS NOTE ---
- HPI Chief Complaint: Other Current : Current EDU 10/12/20 Gestation 37 Weeks and 4 Days 1 Para 0 Vital Signs Heart Rate 79 09/25/20 21:19 Respiratory Rate 16 09/25/20 21:19 Blood Pressure 135/85 H 09/25/20 21:19 Temperature 98.2 F 09/25/20 21:29 Heart Rate 72 09/25/20 22:06 Respiratory Rate 18 09/25/20 21:39 Blood Pressure 132/76 H 09/25/20 23:05 O2 Saturation - Exam 25yo at 37 4/7 weeks presented to Labor and Delivery because she had elevated blood pressures at home. Patient is on Labetalol 100mg BID and had not taken her morning dose. Patient reports mild headache. No visual changes. Patient reports good movement. No contractions, SROM or vaginal bleeding. NST: 125 is FHT's baseline with moderate variability. Accelerations are present. No decelerations. 15X15 Accelerations. Reactive NST and Category I Monitor strip. Blood pressures at Labor and Delivery were assessed and in reasonable range for patient. A-IUP 37 4/7 with Gestational Hypertension, P- COntinue Labetalol 100mg BID. Keep all clinic and monitoring appointments. - Procedures Diagnosis/Indication for NST: Gestational Hypertension NST Procedure: NST Procedure Start Time 16:15 Stop Time 16:44
== END 2020-09-25 23:19 | disposition home or self-care (01) ==
LOC: WFO 21:00 → FBP 21:01 → WFO 23:19
PROVIDERS: ATTEND Obstetrics & Gynecology
DX: O13.3 Gestational [pregnancy-induced] hypertension without significant proteinuria, third trimester (principal); Z3A.37 37 weeks gestation of pregnancy; Z79.899 Other long term (current) drug therapy; R51.9 Headache, unspecified
CPT/HCPCS: 99213

== ENCOUNTER 2020-09-28 13:04 | Outpatient (CLI) | payer OTHER ==
--- NOTE | 2020-09-28 14:47 | PROCEDURE REPORT ---
- HPI Diagnosis/Indication for NST: Pre- Hypertension Current EDU 10/12/20 Gestation 38 Weeks and 0 Days 1 Para 0 Vital Signs Temperature 98.1 F 09/28/20 13:19 Heart Rate 79 09/28/20 13:19 Respiratory Rate 20 09/28/20 13:19 Blood Pressure 143/94 H 09/28/20 13:19 O2 Saturation 98 09/28/20 13:19 Temperature 98.1 F 09/28/20 13:19 Heart Rate 80 09/28/20 13:29 Respiratory Rate 16 09/28/20 13:29 Blood Pressure 136/92 H 09/28/20 13:29 O2 Saturation 98 09/28/20 13:29 - NST Procedure NST Procedure Start Date 09/28/20 Start Time 13:16 Stop Time 16:44 Patient States Movement Yes 25 yo at 38 0/7 here for NST due to CHTN. NST is baseline 130 with moderate variability and accelerations. No decelerations. Reactive NST and Category I monitor strip. - Results and Plan Plan: Continue with all appointments and monitoring.
[2020-09-28 14:48] VITALS: BP 121/82
== END 2020-09-28 14:00 | disposition home or self-care (01) ==
LOC: WFO 13:04 → FBP 13:10 → WFO 14:00
PROVIDERS: ATTEND Obstetrics & Gynecology
DX: O10.913 Unspecified pre-existing hypertension complicating pregnancy, third trimester (principal); Z3A.38 38 weeks gestation of pregnancy
CPT/HCPCS: 59025

== ENCOUNTER 2020-09-29 09:56 | Inpatient (IN) | payer OTHER ==
[2020-09-29 10:50] LABS: BASOPHILS % (AUTO) 0.2 %; EOSINOPHILS # (AUTO) 0.1 10^3/uL (0.0-0.7); EOSINOPHILS % (AUTO) 0.6 %; HGB - HEMOGLOBIN 12.5 g/dL (12.0-16.0); LYMPHOCYTES # (AUTO) 1.9 10^3/uL (1.5-3.5); LYMPHOCYTES % (AUTO) 20.2 %; MEAN CORPUSCULAR HEMOGLOBIN 26.9 pg (27.0-31.0); MEAN CORPUSCULAR HGB CONC 32.9 g/dL (32.0-36.0); MEAN CORPUSCULAR VOLUME 81.9 fL (81.0-99.0); MEAN PLATELET VOLUME 9.8 fL (7.9-10.8); MONOCYTES # (AUTO) 0.6 10^3/uL (0.0-1.0); MONOCYTES % (AUTO) 5.8 %; NEUTROPHILS # (AUTO) 6.9 10^3/uL (1.5-6.6); NEUTROPHILS % (AUTO) 72.8 %; PLT - PLATELET COUNT 315 10^3/uL (130-450); RED BLOOD COUNT 4.64 10^6/uL (4.20-5.40); RED CELL DISTRIBUTION WIDTH 13.4 % (12.0-15.0); WHITE BLOOD COUNT 9.5 x10^3/uL (4.8-10.8)
[2020-09-29 11:04] LABS: ALBUMIN 3.4 g/dL (3.2-5.5); ALBUMIN/GLOBULIN RATIO 0.8 (1.0-2.2); BILIRUBIN,TOTAL 0.2 mg/dL (0.2-1.0); CALCIUM 9.9 mg/dL (8.5-10.3); CREATININE 0.9 mg/dL (0.4-1.0); POTASSIUM 4.4 mmol/L (3.5-5.0); TOTAL PROTEIN 7.7 g/dL (6.7-8.2)
[2020-09-29] MEDS: LACTATED RINGERS 1,000 ML IV SCH ×2 (11:10→17:59)
[2020-09-29] MEDS ORDERED: SODIUM CHLORIDE FLUSH 0.9% 10 ML SYRINGE IVP PRN (11:51)
[2020-09-29] MEDS ORDERED: OXYTOCIN/SODIUM CHLORIDE 500 ML IV PRN (11:51)
[2020-09-29] MEDS ORDERED: METHYLERGONOVINE 0.2 MG/ML VIAL IM PRN (11:51)
[2020-09-29] MEDS ORDERED: LIDOCAINE-MPF 1% 30 ML VIAL ID PRN (11:51)
[2020-09-29] MEDS ORDERED: CARBOPROST TROMETHAMINE 250 MCG/ML AMP IM PRN (11:51)
[2020-09-29] MEDS ORDERED: OXYTOCIN 10 UNIT/ML VIAL IM PRN (11:51)
[2020-09-29] MEDS ORDERED: miSOPROStoL 200 MCG TABLET BC PRN (11:51)
[2020-09-29] MEDS ORDERED: TRANEXAMIC ACID IN NACL 1,000 MG/100 ML BAG IV PRN (11:51)
[2020-09-29] MEDS ORDERED: LACTATED RINGERS 1,000 ML IV SCH (12:00)
--- NOTE | 2020-09-29 12:04 | HISTORY & PHYSICAL EXAMINATION ---
Admit History - Visit Reason Visit Reason: Other (25yo at 38 1/7 with Chroinic Hypertension presented with elevated blood pressure. Patient states she has had a headache, that is dull, since yesterday. Patient denies Contractions, SROM or vaginal bleeding.) - : 1 Parity: 0 Premature: 0 Ectopic: 0 : 0 Risk/History: positive: Other (Chronic Hypertension prior to treated with diuretic.) Complications This : positive: Chronic HTN Smoking Status: Never smoker - Mother's Labs Mother's Blood Type: positive: O Mother's RH: positive: Positive GBS: positive: Group B Strep Positive Rubella Status: positive: Immune Meds/Allgy - Home Medications Home Medications: Ambulatory Orders Medication Instructions Recorded Confirmed Aspirin Chewable [St Jovanny 81 mg PO DAILY 09/25/20 09/25/20 Aspirin] Labetalol [Trandate] 100 mg PO BID 09/25/20 09/25/20 - Allergies Allergies/Adverse Reactions: Allergies Allergy/AdvReac Type Severity Reaction Status Date / Time Sulfa (Sulfonamide Allergy Unknown Hives Verified 09/25/20 21:36 Antibiotics) Review of Systems - Constitutional Constitutional: reports: Other (Patient has had a "dull headache" since yesterday.). denies: Fatigue, Fever, Chills - Cardiovascular Cariovascular: denies: Irregular heart rate, Palpitations, Chest pain - Respiratory Respiratory: denies: Cough, Sputum production, Wheezing - Gastrointestinal Gastrointestinal: denies: Abdominal pain, Diarrhea - Genitourinary Genitourinary: denies: Dysuria - Neurological Neurological: denies: General weakness - Psychiatric Psychiatric: denies: Depression Physical - Abdominal Exam Vital Signs: Temp Pulse Resp BP Pulse Ox 99.0 F 151/97 H 09/29/20 10:06 09/29/20 10:51 Contraction Frequency (min/apart): None - Monitoring Strip Review: positive: Category I - Presentation Presentation: positive: Vertex - Vaginal Exam Membranes: positive: Membranes intact Dilation (in cm): Finger tip Station: positive: -3, Ballotable Cervical Position: positive: Posterior - Speculum Exam Speculum Exam Performed: positive: No - Other Notes Labor Progress Note/Additional Text: 25 yo at 38 1/ with Chronic Hypertension treated with Labetalol during . Patient has had headache that she decribes as "dull", since yesterday. Patient reports good movement. Patient denies contractions, SROM or vaginal bleeding. Patient sent to labor and delivery for evaluation due to elevated blood pressure in the clinic. Patient did take her labetalol this morning. General: Patient is resting on stretcher in no acute distress. Chest: Clear to auscultation. No rales, wheezes or rhonchi. Abdomen: Soft, non-tender to palpation. Gravid. Extremities: No pitting pretibial or pedal edema. CX: FT/long/-3 ballotable/soft/Posterior. Yeast discharge on glove after exam. Monitor: 130's with Moderate variability and Accelerations. Category I monitor strip. Discussed with patient that some of her Systolic blood pressures are 160mmhg or higher and some of Diastolics are over 110 mmhg. Discussed it is time to get th e delivered. Discussed starting with Cytotec and possibly using a tejeda and Pitocin. A-IUP 38 03/11, Chronic Hypertension with Labile blood pressures. R/O Superimposed Pre-Eclampsia Group B Strep positive. P- Begin induction of labor today due to Labile blood pressures. Admit and begin Cervical ripening with Cytotec. Increase Labetalol to 200mg Q8 hours.
[2020-09-29 12:20] LABS: CREATININE,URINE 66.5 mg/dL; PROTEIN/CREATININE RATIO,URINE 0.1 (<=0.2)
[2020-09-29] MEDS: miSOPROStoL 100 MCG TABLET BC SCH ×3 (12:24→20:43)
[2020-09-29] MEDS ORDERED: LABETALOL 100 MG TABLET PO SCH (14:00)
[2020-09-29] MEDS: LABETALOL 100 MG TABLET PO SCH ×2 (16:09→23:58)
[2020-09-29] MEDS ORDERED: AMPICILLIN 2 GM in SODIUM CHLORIDE 0.9% MINIBAG 100 ML IV ONE (18:11)
[2020-09-29] MEDS ORDERED: AMPICILLIN 1 GM in SODIUM CHLORIDE 0.9% MINIBAG 100 ML IV SCH (19:00)
[2020-09-30] MEDS: miSOPROStoL 100 MCG TABLET BC SCH ×2 (00:48→04:44)
[2020-09-30] MEDS: LACTATED RINGERS 1,000 ML IV SCH ×3 (01:21→22:45)
[2020-09-30] MEDS: LABETALOL 100 MG TABLET PO SCH ×2 (08:27→20:08)
--- NOTE | 2020-09-30 08:29 | PROVIDER PROGRESS NOTE ---
Labor Progress Note - Uterine Monitoring Contraction Intensity: positive: Mild - Monitoring Monitor Mode: positive: External ultrasound Heart Rate Baseline: 130 Heart Rate Variability: positive: Moderate (6-25 bmp) Accelerations: positive: Present, 15x15 Decelerations: positive: None - Vaginal Exam Dilation (in cm): 3 Effacement (%): 50 Station: -3 (Definitely effaced since yesterday. Less ballotable, but still can push out of pelvis. 3-4cm.. Membranes stripped. Due to GBS positive, will wait for AROM.) - Labor Progress Note Labor Progress Note/Additional Text: Patient is feeling more contractions and they are more noticeable. Patient reports good movement. Patient would like to eat breakfast and shower. CX: 3/50/-3 soft, less posterior, less ballotable. monitor strip is category I. Discussed options patient and RN. Decided to allow her to eat breakfast and shower. Then start Pitocin IV. Will start Antibiotic prophylaxis for GBS. Consider AROM after first dose in for 4 hours. Epidural when needed.
[2020-09-30] MEDS ORDERED: OXYTOCIN/SODIUM CHLORIDE 500 ML IV SCH (09:00)
--- NOTE | 2020-09-30 10:14 | ANESTHESIA ---
Pre-Anesthesia VS, & Labs - Diagnosis active labor - Procedure labor epidural Vital Signs: Temp Pulse Resp BP Pulse Ox 36.5 C 161/101 H 09/29/20 13:22 09/29/20 11:06 Height: 5 ft 6 in Weight (kg): 126.552 kg Body Mass Index: 45.0 BMI Classification: Morbidly Obese - NPO >8 hours - Is Patient ?: Yes - Lab Results Current Lab Results: Laboratory Tests 09/29/20 10:39: Blood Type O POSITIVE, Antibody Screen NEGATIVE 09/29/20 10:39: Uric Acid 7.4 H 09/29/20 10:39: Sodium 135, Potassium 4.4, Chloride 102, Carbon Dioxide 23, Anion Gap 10.0, BUN 12, Creatinine 0.9, Estimated GFR (MDRD) 76 L, Glucose 86, Calcium 9.9, Total Bilirubin 0.2, AST 16, ALT 16, Alkaline Phosphatase 118, Total Protein 7.7, Albumin 3.4, Globulin 4.3 H, Albumin/Globulin Ratio 0.8 L 09/29/20 10:39: WBC 9.5, RBC 4.64, Hgb 12.5, Hct 38.0, MCV 81.9, MCH 26.9 L, MCHC 32.9, RDW 13.4, Plt Count 315, MPV 9.8, Neut # (Auto) 6.9 H, Lymph # (Auto) 1.9, [place] # (Auto) 0.6, Eos # (Auto) 0.1, Baso # (Auto) 0.0, Absolute Nucleated RBC 0.00, Nucleated RBC % 0.0 Lab results reviewed: Yes Fish Bones: 09/29/20 10:39 09/29/20 10:39 Home Medications and Allergies Active Medications Carboprost Tromethamine (Carboprost Tromethamine 250 Mcg/Ml Amp) 250 mcg IM Q15M PRN PRN Reason: Step 4: Hemorrhage protocol Stop: 10/04/20 11:53 Lactated Ringer's (Lr) 1,000 mls @ 100 mls/hr IV .Q10H BELINDA Oxytocin/Sodium Chloride (Pitocin/Sodium Chloride) 500 mls @ 999 mls/hr IV PRN PRN; Protocol PRN Reason: POST- HEMORR PREVENTION Stop: 10/04/20 11:53 Tranexamic Acid (Tranexamic 1,000 Mg/100ml-Nacl) 1,000 mg in 100 mls @ 600 mls/hr IV .ONCE PRN PRN Reason: EBL >1200mL and within 3hr Stop: 10/04/20 11:53 Ampicillin Sodium 1 gm/ Sodium (Chloride) 100 mls @ 200 mls/hr IV Q4H [facility] Oxytocin/Sodium Chloride (Pitocin/Sodium Chloride) 500 mls @ 1 mls/hr IV TITR BELINDA; Protocol Last Admin: 09/30/20 09:10 Dose: 1 milliunit/min, 1 mls/hr Documented by: Labetalol HCl (Labetalol 100 Mg Tablet) 200 mg PO 0000,0800,1600 [facility] Last Admin: 09/30/20 08:27 Dose: 200 mg Documented by: Lidocaine HCl (Lidocaine-Mpf 1% 30 Ml Vial) 30 ml ID .ONCE PRN PRN Reason: PERINEAL REPAIR Stop: 10/04/20 11:53 Methylergonovine Maleate (Methylergonovine 0.2 Mg/Ml Vial) 0.2 mg IM .ONCE PRN PRN Reason: Step 2: Hemorrhage protocol Stop: 10/04/20 11:53 Misoprostol (Misoprostol 200 Mcg Tablet) 800 mcg BC .ONCE PRN PRN Reason: Step 3: Hemorrhage protocol Stop: 10/04/20 11:53 Misoprostol (Misoprostol 100 Mcg Tablet) 50 mcg BC Q4H [facility] Last Admin: 09/30/20 04:44 Dose: 50 mcg Documented by: Oxytocin (Oxytocin 10 Unit/Ml Vial) 10 unit IM .ONCE PRN PRN Reason: Step one: If no IV access Stop: 10/04/20 11:53 Sodium Chloride (Sodium Chloride Flush 0.9% 10 Ml Syringe) 10 ml IVP 0100,0900,1700 [facility] Sodium Chloride (Sodium Chloride Flush 0.9% 10 Ml Syringe) 10 ml IVP PRN PRN PRN Reason: NEEDED PER PROVIDER ORDERS Aspirin Chewable [St Jovanny Aspirin] 81 mg PO DAILY 09/25/20 Labetalol [Trandate] 100 mg PO BID 09/25/20 Allergies/Adverse Reactions: Allergies Allergy/AdvReac Type Severity Reaction Status Date / Time Sulfa (Sulfonamide Allergy Unknown Hives Verified 09/25/20 21:36 Antibiotics) Anes History & Medical History - Anesthetic History Anesthesia Complications: reports: No previous complications Family history of Anesthesia Complications: Denies Family history of Malignant Hyperthermia: Denies - Medical History Cardiovascular: reports: Hypertension Smoking Status: Never smoker - Obstetrical History : 1 Parity: 0 Events: reports: Other (Chronic Hypertension prior to treated with diuretic.) Complications: reports: Chronic HTN Exam General: Alert, Oriented x3, Cooperative, No acute distress Plan Anesthesia Type: Epidural Consent for Procedure(s) Verified and Reviewed: Yes Code Status: Attempt Resuscitation ASA classification: 3-Severe systemic disease Is this case an emergency?: No
[2020-09-30] MEDS ORDERED: BUPIVACAINE 0.25% PF 10 ML VIAL ONE (11:16)
[2020-09-30] MEDS ORDERED: fentaNYL 100 MCG/2 ML VIAL ONE ×2 (11:16→14:25)
[2020-09-30] MEDS ORDERED: ROPIVACAINE 0.2% 200 MG/100 ML BAG EP ONE (11:16)
--- NOTE | 2020-09-30 11:25 | PROVIDER PROGRESS NOTE ---
Labor Progress Note - Uterine Monitoring Uterine Monitoring Mode: positive: IUPC (Called by RN that patient apeared to be having late Decelerations with contractions. Patient examined. AROM performed, clear fluid present. IUPC and FSE placed for accurate monitoring due to decerlation and Pitocin to induce labor.) Contraction Frequency (min/apart): Q1-3 Contraction Intensity: positive: Moderate Uterine Resting Tone: positive: Soft - Monitoring Monitor Mode: positive: Spiral electrode (Due to what appeared to be late decelerations on external monitor, FSE place for accurate monitoring of FHT and contractions.) Heart Rate Variability: positive: Moderate (6-25 bmp) Accelerations: positive: Present, 15x15 Decelerations: positive: Variable, Recurrent (>50% x20 min) Strip Review: positive: Category II - Vaginal Exam Dilation (in cm): 3.5 Effacement (%): 70 Station: -2 Cervical Position: Midposition - Labor Progress Note Labor Progress Note/Additional Text: Patient is progressing. Pitocin is at 3miu/min. On external monitor decelerations appeared to be late in timing. CX exam was 3.5/70/-2 which is progress from last exam. AROM performed with clear fluid. IUPC and FSE placed. Patient requested epidural at this time. RN started IV bolus. Patient had Variable deceleration with every contraction for three contractions. Pitocin was turned off. Patient is sitting up and getting epidural at this time. Patient is GBS positive and our "treated time" is 1300. Continue careful monitoring. Will re-start Pitocin when patient can be placed on side after epidural is set up. Keep Pitocin off when patient can't move positions.
[2020-09-30] MEDS ORDERED: ROPIVACAINE 0.2% 200 MG/100 ML BAG EP PRN (12:03)
[2020-09-30] MEDS ORDERED: ePHEDrine 50 MG/ML VIAL IVP PRN ×3 (12:03→15:25)
[2020-09-30] MEDS ORDERED: NALOXONE 0.4 MG/ML VIAL IVP PRN ×3 (12:03→15:25)
[2020-09-30] MEDS ORDERED: METOCLOPRAMIDE 10 MG/2 ML VIAL IVP PRN ×3 (12:03→15:25)
[2020-09-30] MEDS ORDERED: diphenhydrAMINE INJ 50 MG/ML VIAL IVP PRN ×2 (12:03→15:24)
[2020-09-30] MEDS ORDERED: ONDANSETRON 4 MG/2 ML VIAL IVP PRN ×3 (12:03→15:25)
[2020-09-30] MEDS ORDERED: SODIUM CHLORIDE 0.9% 500 ML IV ONE (12:08)
[2020-09-30] MEDS ORDERED: SODIUM CHLORIDE 0.9% 1,000 ML IV ONE (12:10)
--- NOTE | 2020-09-30 12:17 | PROVIDER PROGRESS NOTE ---
Labor Progress Note - Uterine Monitoring Uterine Monitoring Mode: positive: IUPC (IUPC came out during sitting up for Epi drual. IUPC replaced.) Contraction Intensity: positive: Moderate Uterine Resting Tone: positive: Soft - Monitoring Monitor Mode: positive: Spiral electrode Heart Rate Baseline: 130 Heart Rate Variability: positive: Moderate (6-25 bmp) Accelerations: positive: Present, 15x15 Decelerations: positive: Variable, Recurrent (>50% x20 min) Strip Review: positive: Category II (Amnio infusion started.)
[2020-09-30] MEDS ORDERED: ceFAZolin 1 GM VIAL ONE ×2 (14:14→14:34)
[2020-09-30] MEDS ORDERED: OXYTOCIN 10 UNIT/ML VIAL ONE (14:14)
[2020-09-30] MEDS ORDERED: LIDOCAINE MPF 2%-EPI 1:200000 20 ML VIAL ONE (14:14)
[2020-09-30] MEDS ORDERED: ONDANSETRON 4 MG/2 ML VIAL ONE (14:15)
[2020-09-30] MEDS ORDERED: TERBUTALINE 1 MG/ML VIAL SUBQ ONE ×2 (14:20→17:37)
[2020-09-30] MEDS ORDERED: MORPHINE PF 5 MG/10 ML VIAL ONE (14:25)
[2020-09-30] MEDS ORDERED: miSOPROStoL 200 MCG TABLET ONE (14:35)
[2020-09-30] MEDS ORDERED: METHYLERGONOVINE 0.2 MG/ML VIAL ONE (14:36)
[2020-09-30] MEDS ORDERED: CARBOPROST TROMETHAMINE 250 MCG/ML AMP IM ONE (14:36)
[2020-09-30] MEDS ORDERED: BUPIVACAINE 0.5%-EPI 1:200000 PF 30 ML VIAL ONE (14:37)
[2020-09-30] MEDS ORDERED: MORPHINE PF 5 MG/10 ML VIAL EP ONE (15:24)
[2020-09-30] MEDS ORDERED: fentaNYL 100 MCG/2 ML VIAL EP ONE (15:24)
[2020-09-30] MEDS ORDERED: NALBUPHINE 10 MG/ML AMP IVP PRN (15:24)
[2020-09-30] MEDS ORDERED: ATROPINE ABBOJECT 1 MG/10 ML SYRINGE IVP PRN (15:25)
[2020-09-30] MEDS ORDERED: LACTATED RINGERS 1,000 ML IV ONE (15:44)
--- NOTE | 2020-09-30 15:51 | ANESTHESIA POST OP EVALUATION ---
Anesthesia Post Eval - Post Anesthesia Eval Vitals: Last Vital Signs Temp 36.5 C 09/29/20 13:22 Pulse Resp BP 161/101 H 09/29/20 11:06 Pulse Ox CV Function Including HR & BP: Stable Pain Control: Satisfactory Nausea & Vomiting: Negative Mental Status: Baseline Respiratory Status: Airway Patent Hydration Status: Satisfactory Anesthesia Complications: None
[2020-09-30] MEDS ORDERED: SODIUM CHLORIDE FLUSH 0.9% 10 ML SYRINGE IVP PRN (15:53)
[2020-09-30] MEDS ORDERED: LACTATED RINGERS 1,000 ML IV SCH (16:00)
[2020-09-30] MEDS: KETOROLAC 15 MG/ML VIAL IVP SCH ×2 (16:30→22:21)
--- NOTE | 2020-09-30 16:56 | DELIVERY NOTE ---
Delivery Note - Labor Labor: positive: Induced by oxytocin - Delivery Method Delivery Method: positive: Primary - Cervical Ripening Method Cervical Ripening Method: positive: Misoprostil - Presentation Presentation: positive: Vertex, LOP - left occiput posterior - Nuchal Cord Nuchal Cord: positive: None - Anesthetic Anesthetic Type: - Amniotic Fluid Description Amniotic Fluid Description: positive: Clear - Episiotomy Type Episiotomy Type: positive: None - Laceration Laceration: positive: None - Westerlo Westerlo: positive: Warmer used - Cord Cord: positive: 3 vessels - Placenta Placenta: positive: Manual removal - Estimated Blood Loss Estimated Blood Loss (in cc): 500 - Post Delivery Events Post Delivery Events: positive: No post delivery events (Stat due to F etal intolerance to labor and deep, repetitive Variale decelerations.)
[2020-09-30] MEDS ORDERED: KETOROLAC 15 MG/ML VIAL IVP SCH (17:00)
[2020-09-30] MEDS ORDERED: SODIUM CHLORIDE FLUSH 0.9% 10 ML SYRINGE IVP SCH (17:00)
--- NOTE | 2020-09-30 17:02 | OPERATIVE REPORT ---
Operative Report - General Admit Date: 09/29/20 Procedure Date: 09/30/20 Planned Procedure: Primary Low Transverse Section. Pre-Op Diagnosis: IUP 38 1/7 with CHTN, Intolerance to labor with stress Procedure Performed: Primary Low Transverse Section. - Procedure Note Primary Surgeon: Praveen Tyson DO Secondary Surgeon: Brittany Francisco CNM Anesthesia Provider: Gigi Griffin Anesthesia Technique: Epidural, Other Pathology: Placenta sent to pathology. Normal gravid uterus, Normal tubes and ovaries visualized bilaterally. IV Fluids (mL): 1,000 Estimated Blood Loss (mL): 500 Urine Output (mL): 700 Indications: Intolerance to labor. Findings: Living Male with Apgars of 7/9 Complications: None - Other Other Information/Narrative: 25yo at 38 1/7 with Chronic Hypertension was undergoing induction of labor. Patient progressed to 3 cm and AROM performed due to decelerations on external monitor. Patient had IUPC and FSE placed. Amnioinfusion performed due to deep variable decelerations with contractions. Pitocin was turned off. mon itor strip recovered while bolus of amnioinfusion was being administered. 30 minutes of a Category I strip and Pitocin was started back at 1miu/min. Fetus started having decelerations again. Patient changed positions. heart tones had moderate variability but did not return to baseline of 130's and continued to have decelrations to 60's. Patient given one does of terbutaline to relax uterus and verbally consented for Delivery. Patient signed consent. Anesthesia dosed her epidural and the OR team was standing by. Patient had received two doses of Ampicillin at this time for GBS prophylaxis. Patient received Ancef 3 grams pre-operatively. Simon was in place. Patient was taken to OR suite and placed on table in supine position A wedge was placed under her right hip. Patient was prepped and draped in usual fashion. 3 grams of Ancef were given for Prophylaxis. Time out was performed. Skin incision was made in Pfannesteil fashion with sharp knife. Skin incision was carried to fascia with knife. Fascia was incised in the midline with knife. Fascia incision extended laterally with Henriquez scissors and pickups with teeth. Two Kochers were placed on superior edge of fascia and the fascia was dissected from muscle belly wall with blunt dissection and henriquez scissors. The same procedure was performed for the inferior edge of fascia. A hemostat was utilized to separate the muscle bellies in the midline. The peritoneum was grasped and elevated. The metzenbaum scissors were utlized to incise the peritoneum. BLunt dissection then allowed the peritoneal cavity to be entered. The uterus was checked for proper rotation which was present. The lower uterine segment had a bladder flap created with metzenbaum scissors and blunt dissection. THe bladder blade was placed to include the newly created bladder flap. The uterine incision was made in the transverse fashion. The uterine incision was extended with blunt dissection in caudal fashion. The infant's head was grasped with surgeon's hand and elevated. Remainder of delivered easily through incision. Living male in LOP position. Apgars of 7/9. Cord gases collected. Cord blood collected. Pitocin started in mother's IV. Placenta manually removed. Uterus externalized and wrapped in warm, moist lap. Uterine cavity wiped clean with lap. Rings forceps placed on edges of uterine incision. There was extension on patient's right side down the uterus towards the vagina. 0-Vicryl in running , interlocking fashion was utilized to close uterus. Second suture of 0-Vicryl in running, embricating fashion to embricate uterine incision. Figure of 8 of 0-Vicryl on right side of apex of incison to ensure closure. Irrigation performed. Small bleeders cauterized with Bovie. Good hemostasis was present. The Cul de sac and pericolic gutters were irrigated. The uterus was returned to abdominal cavity. The uterine incision was re--inspected and hemostasis was present. The edges of peritoneum were grasped with hemostats. The peritoneum was closed with 2-0 Vicryl in running fashion. The Rectus muscles were approximated with one figure of 8 of 2-0 Vicryl. The rectus muscles were irrigated and found to be hemostatic. #1PDS was utilized to repair the fascia. Good hemostasis and approximation were obtained. The subcutaneous tissue was irrigated and closed with 2-0 Vicryl. Irrigation performed. Bocie utilized to obtain hemostasis. 3-0 Monocryl was utilized to close the skin in subcuticular fashion. Prevena dressing was placed. EBL is 500cc. Mother and are resting in stable condition. Lap, needle, and instrument counts were reported as correct times three,
[2020-09-30] MEDS ORDERED: ACETAMINOPHEN 1,000 MG/100 ML 100 ML IV ONE (17:38)
[2020-09-30] MEDS ORDERED: KETOROLAC 30 MG/ML VIAL IVP SCH (18:00)
[2020-09-30] MEDS: NALBUPHINE 10 MG/ML AMP IVP PRN (19:29)
[2020-10-01] MEDS: NALBUPHINE 10 MG/ML AMP IVP PRN ×2 (01:23→06:58)
[2020-10-01] MEDS: LACTATED RINGERS 1,000 ML IV SCH (03:11)
[2020-10-01] MEDS: KETOROLAC 15 MG/ML VIAL IVP SCH ×2 (04:19→11:02)
[2020-10-01] MEDS: SODIUM CHLORIDE FLUSH 0.9% 10 ML SYRINGE IVP SCH ×2 (04:20→11:02)
[2020-10-01 05:47] LABS: BASOPHILS % (AUTO) 0.1 %; EOSINOPHILS # (AUTO) 0.1 10^3/uL (0.0-0.7); EOSINOPHILS % (AUTO) 0.7 %; HCT - HEMATOCRIT 30.7 % (37.0-47.0); HGB - HEMOGLOBIN 10.3 g/dL (12.0-16.0); LYMPHOCYTES # (AUTO) 1.4 10^3/uL (1.5-3.5); LYMPHOCYTES % (AUTO) 15.1 %; MEAN CORPUSCULAR HEMOGLOBIN 28.1 pg (27.0-31.0); MEAN CORPUSCULAR HGB CONC 33.6 g/dL (32.0-36.0); MEAN CORPUSCULAR VOLUME 83.7 fL (81.0-99.0); MEAN PLATELET VOLUME 9.3 fL (7.9-10.8); MONOCYTES # (AUTO) 0.6 10^3/uL (0.0-1.0); MONOCYTES % (AUTO) 6.8 %; NEUTROPHILS # (AUTO) 7.3 10^3/uL (1.5-6.6); NEUTROPHILS % (AUTO) 76.9 %; PLT - PLATELET COUNT 212 10^3/uL (130-450); RED BLOOD COUNT 3.67 10^6/uL (4.20-5.40); RED CELL DISTRIBUTION WIDTH 13.4 % (12.0-15.0); WHITE BLOOD COUNT 9.5 x10^3/uL (4.8-10.8)
[2020-10-01] MEDS ORDERED: LABETALOL 100 MG TABLET PO ONE ×2 (08:30→20:45)
[2020-10-01] MEDS: LABETALOL 100 MG TABLET PO SCH (08:30)
--- NOTE | 2020-10-01 13:31 | PROVIDER PROGRESS NOTE ---
Subjective - Prog Note Date Prog Note Date: 10/01/20 Prog Note Time: 10:30 - Subjective Pt reports feeling: Improved (Patient is doing well. Patient is resting in her bed. Patient has ambulated, urinated and is tolerating a regular diet. Pain is well controlled.) Objective - Vital Signs/Intake & Output Vital Signs: Vital Signs x48h Temp Pulse Resp BP Pulse Ox 10/01/20 13:27 98.4 F 81 20 112/51 L 98 10/01/20 10:20 108/72 10/01/20 08:16 98.2 F 72 16 105/57 L 100 Intake & Output: Intake & Output 09/28/20 09/29/20 09/30/20 10/01/20 23:59 23:59 23:59 23:59 Intake Total 5072.381 4791.800 2436.6 Output Total 425 1113 2233 Balance 619.680 7882.800 203.6 - Objective General Appearance: positive: No acute distress Eyes Bilateral: positive: Normal inspection Neck: positive: Nml inspection Respiratory: positive: No respiratory distress, Breath sounds nml Cardiovascular: positive: Regular rate & rhythm, No murmur, No gallop Abdomen: positive: Nml bowel sounds, Other (Abdomen is soft and non-tender to palpation. Good bowel sounds in all quadrants. Fundus is firm and below the umbilicus. Incision/dressing is intact without erythema or drainage. Preveena dressing is in place.) Skin: positive: Color nml, No rash Extremities: positive: Non-tender, No pedal edema Neurologic/Psychiatric: positive: Oriented x3, Mood/affect nml - Lab Results Fish Bones: 10/01/20 05:41 09/29/20 10:39 Other Labs: Lab Results x24hrs 10/01/20 Range/Units 05:41 WBC 9.5 (4.8-10.8) x10^3/uL RBC 3.67 L (4.20-5.40) 10^6/uL Hgb 10.3 L (12.0-16.0) g/dL Hct 30.7 L (37.0-47.0) % MCV 83.7 (81.0-99.0) fL MCH 28.1 (27.0-31.0) pg MCHC 33.6 (32.0-36.0) g/dL RDW 13.4 (12.0-15.0) % Plt Count 212 (130-450) 10^3/uL MPV 9.3 (7.9-10.8) fL Neut # (Auto) 7.3 H (1.5-6.6) 10^3/uL Lymph # (Auto) 1.4 L (1.5-3.5) 10^3/uL [place] # (Auto) 0.6 (0.0-1.0) 10^3/uL Eos # (Auto) 0.1 (0.0-0.7) 10^3/uL Baso # (Auto) 0.0 (0.0-0.1) 10^3/uL Absolute Nucleated RBC 0.00 x10^3/uL Nucleated RBC % 0.0 /100WBC Assessment/Plan - Problem List (1) Chronic hypertension affecting Impression: Post-Operative day 1 Primary Low Transverse Section. P- Change to oral pain medications, Motrin 600, Oxycodone 5mg and Tylenol. Routine post-operative orders. Probable discharge tomorrow.
[2020-10-01] MEDS: oxyCODONE 5 MG TABLET PO PRN ×3 (13:54→23:30)
[2020-10-01] MEDS: IBUPROFEN 600 MG TABLET PO SCH ×2 (16:39→22:25)
[2020-10-01] MEDS: DOCUSATE SODIUM 100 MG CAPSULE PO SCH (21:12)
[2020-10-01] MEDS: ACETAMINOPHEN 325 MG TABLET PO PRN (22:26)
[2020-10-02] MEDS: ACETAMINOPHEN 325 MG TABLET PO PRN ×3 (03:28→11:12)
[2020-10-02] MEDS: oxyCODONE 5 MG TABLET PO PRN ×3 (03:28→11:12)
[2020-10-02] MEDS: IBUPROFEN 600 MG TABLET PO SCH ×2 (04:25→11:07)
[2020-10-02 07:31] VITALS: BP 116/71
[2020-10-02] MEDS ORDERED: LABETALOL 100 MG TABLET PO SCH (09:03)
[2020-10-02] MEDS: DOCUSATE SODIUM 100 MG CAPSULE PO SCH (09:14)
--- NOTE | 2020-10-02 11:05 | DISCHARGE SUMMARY ---
"Discharge Summary Admit Date: 09/28/20 Discharge Date: 10/02/20 Discharging Provider: Praveen Tyson DO Code Status: Attempt Resuscitation Condition at Discharge: Good Discharge Disposition: 01 Home, Self Care - DIAGNOSES Admission Diagnoses: IUP 38 1/7 with Chronic Hypertension complicating . Discharge Diagnoses with Status of Each Condition: S/P Primary Low Transverse Section due to Intolerance to labor. Chronic Hypertension. - HPI History of Present Illness: 25 you at 38 1/7 with Chronic Hypertension was induced to to elevated blood pressures. Patient had been on Labetalol throughout the . The day of admission, her Systolic blood pressure reached 160 and Diastolic reached 110. Lab work that was performed did not indicate there was superimposed pre- Eclampsia. - CONSULTS | PROCEDURES Procedures: Induction of labor, beginning with Cervical Ripening. Primary Low Transverse Section. - HOSPITAL COURSE Hospital Course: Patient had ccervical ripening with Cytotec and then Pitocin for labor. AROM was utilized. Patient had epidural placed. heart rate decelerations required an Emergent Low Transverse Section. Patient tolerated the procedure well. Living male with apgars of 7/9. course has been uneventful and blood pressure is controlled with oral Labetalol. Pain is controlled on oral Motrin and Oxycodone. Patient is ready to be discharged chante e. - ALLERGIES Allergies/Adverse Reactions: Allergies Allergy/AdvReac Type Severity Reaction Status Date / Time Sulfa (Sulfonamide Allergy Unknown Hives Verified 09/25/20 21:36 Antibiotics) - MEDICATIONS Home Medications: Ambulatory Orders Medication Instructions Recorded Confirmed Aspirin Chewable [St Jovanny 81 mg PO DAILY 09/25/20 09/25/20 Aspirin] Labetalol [Trandate] 100 mg PO BID 09/25/20 09/25/20 - PHYSICAL EXAM AT DISCHARGE General Appearance: positive: No acute distress Eyes Bilateral: positive: Normal inspection Respiratory: positive: No respiratory distress, Breath sounds nml Cardiovascular: positive: Regular rate & rhythm, No murmur, No gallop Abdomen: positive: Non-tender, Nml bowel sounds, Other (Fundus is firm and below the umbilicus. Incision has Preveena dressing that is intact without erythema or drainage.) Extremities: positive: Non-tender, Full ROM, Other (There is pedal edema that is non-pitting. There is pre-tibial edema that is non-pitting.) Neurologic/Psychiatric: positive: Oriented x3, Mood/affect nml Reflexes: Knee (R): 2+ - LABS Result Diagrams: 10/01/20 05:41 09/29/20 10:39 - QUALITY (Female Hip Fx Only) Was patient sent home on osteoporosis medication?: No - FOLLOW UP Follow Up: In office at one week Post-op for dressing removal and check. - TIME SPENT Time Spent in Discharge (Minutes): 30"
== END 2020-10-02 12:40 | disposition home or self-care (01) | DRG 788 ==
LOC: WFO 09:56 → FBP 09:57 → WFO 11:50 → FBP 11:51
PROVIDERS: ADMIT Obstetrics & Gynecology; ATTEND Obstetrics & Gynecology
PROC: 3E033VJ Introduction of Other Hormone into Peripheral Vein, Percutaneous Approach (ICD-10-PCS; 2020-09-30)
PROC: 10H07YZ Insertion of Other Device into Products of Conception, Via Natural or Artificial Opening (ICD-10-PCS; 2020-09-30)
PROC: 10907ZC Drainage of Amniotic Fluid, Therapeutic from Products of Conception, Via Natural or Artificial Opening (ICD-10-PCS; 2020-09-30)
PROC: 10D00Z1 Extraction of Products of Conception, Low, Open Approach (ICD-10-PCS; principal; 2020-09-30 14:30)
DX: O10.92 Unspecified pre-existing hypertension complicating childbirth (principal); O76 Abnormality in fetal heart rate and rhythm complicating labor and delivery; Z37.0 Single live birth; O99.824 Streptococcus B carrier state complicating childbirth; Z3A.38 38 weeks gestation of pregnancy; Z79.899 Other long term (current) drug therapy
CPT/HCPCS: 36415; 80053; 82570; 84156; 84550; 85025; 86850; 86900; 86901; 99214; A9270; J0131; J2210; J2274; J2300; J7120; 82803; 99215

== ENCOUNTER 2020-10-03 21:53 | Emergency (ER) | payer OTHER ==
[2020-10-03 22:21] LABS: HCT - HEMATOCRIT 31.7 % (37.0-47.0); HGB - HEMOGLOBIN 10.3 g/dL (12.0-16.0); MEAN CORPUSCULAR HEMOGLOBIN 27.5 pg (27.0-31.0); MEAN CORPUSCULAR VOLUME 84.5 fL (81.0-99.0); RED BLOOD COUNT 3.75 10^6/uL (4.20-5.40); WHITE BLOOD COUNT 8.5 x10^3/uL (4.8-10.8)
[2020-10-03 22:22] LABS: BASOPHILS % (AUTO) 0.2 %; EOSINOPHILS % (AUTO) 2.5 %; LYMPHOCYTES # (AUTO) 2.2 10^3/uL (1.5-3.5); LYMPHOCYTES % (AUTO) 25.4 %; MEAN CORPUSCULAR HGB CONC 32.5 g/dL (32.0-36.0); MEAN PLATELET VOLUME 9.3 fL (7.9-10.8); MONOCYTES # (AUTO) 0.5 10^3/uL (0.0-1.0); MONOCYTES % (AUTO) 5.3 %; NEUTROPHILS # (AUTO) 5.6 10^3/uL (1.5-6.6); NEUTROPHILS % (AUTO) 66.2 %; PLT - PLATELET COUNT 310 10^3/uL (130-450); RED CELL DISTRIBUTION WIDTH 13.4 % (12.0-15.0)
[2020-10-03 22:23] LABS: EOSINOPHILS # (AUTO) 0.2 10^3/uL (0.0-0.7)
[2020-10-03 22:47] LABS: BILIRUBIN,TOTAL 0.5 mg/dL (0.2-1.0); CALCIUM 9.2 mg/dL (8.5-10.3); CREATININE 0.9 mg/dL (0.4-1.0); POTASSIUM 4.1 mmol/L (3.5-5.0); URIC ACID 7.2 mg/dL (2.6-7.2)
[2020-10-03 22:48] LABS: ALBUMIN 3.2 g/dL (3.2-5.5); ALBUMIN/GLOBULIN RATIO 0.8 (1.0-2.2); TOTAL PROTEIN 7.2 g/dL (6.7-8.2)
[2020-10-04 00:12] LABS: CLARITY,URINE CLEAR (CLEAR); KETONES,URINE (UA) NEGATIVE (NEGATIVE); LEUKOCYTE ESTERASE, URINE NEGATIVE (NEGATIVE); NITRITE,URINE NEGATIVE (NEGATIVE); OCCULT BLOOD,URINE MODERATE (NEGATIVE); PROTEIN,URINE NEGATIVE (NEGATIVE); UROBILINOGEN,URINE 0.2 (NORMAL) E.U./dL (NORMAL)
[2020-10-04 00:13] LABS: BACTERIA,URINE Few /HPF (None Seen); BILIRUBIN,URINE NEGATIVE (NEGATIVE); GLUCOSE, URINE (UA) NEGATIVE (NEGATIVE); SQUAMOUS EPITHELIAL CELL,UR FEW Squamous (<= Few); WBC,URINE 0-3 /HPF (0-5)
[2020-10-04 00:21] LABS: CREATININE,URINE 31.1 mg/dL; TOTAL PROTEIN,URINE RANDOM < 6 mg/dL
--- NOTE | 2020-10-04 01:03 | ED Physician Documentation ---
History of Present Illness - Stated complaint Stated Complaint: HIGH BLOOD PRESSURE - Chief complaint Chief Complaint: General - History obtained from History obtained from: Patient - Additonal information Additional information: 25-year-old woman, With history of essential hypertension, 3 days c section, presents with Bilateral frontal headache that is a 6 out of 10 starting at 8 PM, gradual in onset dull and nonradiating. Her LEAVE MANAGER sent her in for evaluation for preeclampsia. Patient denies vision changes, nausea, lightheadedness, chest pain or shortness of breath or abdominal pain. Passing normal flatus. Urinating okay. Review of Systems Ten Systems: 10 systems reviewed and negative Constitutional: denies: Fever, Chills Eyes: denies: Loss of vision Cardiac: denies: Chest pain / pressure Respiratory: denies: Dyspnea GI: denies: Abdominal Pain : denies: Dysuria Neurologic: reports: Headache PD PAST MEDICAL HISTORY - Past Medical History Past Medical History: Yes Cardiovascular: Hypertension - Past Surgical History Past Surgical History: Yes /[facility]: section - Present Medications Home Medications: Ambulatory Orders Medication Instructions Recorded Confirmed Aspirin Chewable [St Jovanny 81 mg PO DAILY 09/25/20 10/03/20 Aspirin] Labetalol [Trandate] 100 mg PO BID 09/25/20 10/03/20 - Allergies Allergies/Adverse Reactions: Allergies Allergy/AdvReac Type Severity Reaction Status Date / Time Sulfa (Sulfonamide Allergy Unknown Hives Verified 10/03/20 22:11 Antibiotics) - Social History Does the pt smoke?: No Smoking Status: Never smoker Does the pt drink ETOH?: No Does the pt have substance abuse?: No - Immunizations Immunizations are current?: Yes PD ED PE NORMAL - Vitals Vital signs reviewed: Yes - General General: Alert and oriented X 3, No acute distress, Well developed/nourished - HEENT HEENT: Atraumatic, PERRL, EOMI - Neck Neck: Supple, no meningeal sign - Cardiac Cardiac: RRR - Respiratory Respiratory: No respiratory distress, Clear bilaterally - Abdomen Abdomen: Non tender, Non distended - Derm Derm: Normal color, Warm and dry, Other ( wound clean) - Extremities Extremities: No deformity, Other (1+ bilateral pitting edema) - Neuro Neuro: Alert and oriented X 3, No motor deficit, No sensory deficit, Other (No clonus) - Psych Psych: Normal mood, Normal affect Results - Vitals Vitals: Vital Signs - 24 hr 10/03/20 10/03/20 10/03/20 22:05 22:29 23:02 Temperature 36.1 C L Heart Rate 78 86 75 Respiratory 18 18 18 Rate Blood Pressure 149/105 H 145/100 H 131/96 H O2 Saturation 99 100 100 10/03/20 10/04/20 23:26 01:11 Temperature Heart Rate 75 76 Respiratory 18 15 Rate Blood Pressure 139/89 H 140/95 H O2 Saturation 98 100 Oxygen O2 Source Room air - Labs Labs: Laboratory Tests 10/03/20 10/03/20 10/03/20 22:08 22:08 23:33 WBC 8.5 RBC 3.75 L Hgb 10.3 L Hct 31.7 L MCV 84.5 MCH 27.5 MCHC 32.5 RDW 13.4 Plt Count 310 MPV 9.3 Neut # (Auto) 5.6 Lymph # (Auto) 2.2 Tillman # (Auto) 0.5 Eos # (Auto) 0.2 Baso # (Auto) 0.0 Absolute Nucleated RBC 0.00 Nucleated RBC % 0.0 Sodium 140 Potassium 4.1 Chloride 104 Carbon Dioxide 26 Anion Gap 10.0 BUN 12 Creatinine 0.9 Estimated GFR (MDRD) 76 L Glucose 87 Uric Acid 7.2 Calcium 9.2 Total Bilirubin 0.5 AST 23 ALT 20 Alkaline Phosphatase 88 Total Protein 7.2 Albumin 3.2 Globulin 4.0 Albumin/Globulin Ratio 0.8 L Lipase 28 Urine Color COLORLESS Urine Clarity CLEAR Urine pH 7.0 Ur Specific [place] 1.010 Urine Protein NEGATIVE Urine Glucose (UA) NEGATIVE Urine Ketones NEGATIVE Urine Occult Blood MODERATE H Urine Nitrite NEGATIVE Urine Bilirubin NEGATIVE Urine Urobilinogen 0.2 (NORMAL) Ur Leukocyte Esterase NEGATIVE Urine RBC 6-10 H Urine WBC 0-3 Ur Squamous Epith Cells FEW Squamous Urine Bacteria Few Ur Microscopic Review INDICATED Urine Culture Comments NOT INDICATED U Random Total Protein Urine Creatinine 10/03/20 23:33 WBC RBC Hgb Hct MCV MCH MCHC RDW Plt Count MPV Neut # (Auto) Lymph # (Auto) [place] # (Auto) Eos # (Auto) Baso # (Auto) Absolute Nucleated RBC Nucleated RBC % Sodium Potassium Chloride Carbon Dioxide Anion Gap BUN Creatinine Estimated GFR (MDRD) Glucose Uric Acid Calcium Total Bilirubin AST ALT Alkaline Phosphatase Total Protein Albumin Globulin Albumin/Globulin Ratio Lipase Urine Color Urine Clarity Urine pH Ur Specific [place] Urine Protein Urine Glucose (UA) Urine Ketones Urine Occult Blood Urine Nitrite Urine Bilirubin Urine Urobilinogen Ur Leukocyte Esterase Urine RBC Urine WBC Ur Squamous Epith Cells Urine Bacteria Ur Microscopic Review Urine Culture Comments U Random Total Protein < 6 Urine Creatinine 31.1 PD MEDICAL DECISION MAKING - ED course ED course: Patient with noncontributory labs, now asymptomatic without headache in ED. d/w Dr. Tyson who recommends dc home with increase in labetalol to 200 bid. patient will f/u in ob clinic Sunday. strict return precautions given. Departure - Departure Disposition: Home, Self Care Clinical Impression: Hypertension, Headache Condition: Good Instructions: Blood Pressure Dc Comments: You were seen in the ED for high blood pressure after giving with headache. Your labwork did not show concerning findings according to Dr. Tyson, the drawing supervisor electronics commodity manager. Your blood pressure was mildly elevated here in the ED, but since your headache resolved we will allow you to go home and follow up in drawing supervisor clinic. please return immediately if you have severe headache, vision changes, nausea, shortness of breath, chest pain, dizziness, fever, inability to pass divya, urinary pain, or any other new or worsening symptoms or other concerns. Discharge Date/Time: 10/04/20 01:16
[2020-10-04 01:12] VITALS: BP 140/95
== END 2020-10-04 01:16 | disposition home or self-care (01) ==
LOC: ED 21:53
DX: I10 Essential (primary) hypertension (principal); R51.9 Headache, unspecified
CPT/HCPCS: 36415; 80053; 81001; 81003; 82570; 83690; 84156; 84550; 85025; 87086; 93005; 99284

== ENCOUNTER 2020-10-05 13:40 | Inpatient (IN) | payer OTHER ==
--- NOTE | 2020-10-05 14:40 | ED Physician Documentation ---
History of Present Illness - Stated complaint Stated Complaint: HEADACHE - Chief complaint Chief Complaint: Neuro - Additonal information Additional information: 25-year-old female return to the emergency department for evaluation of a postur al headache. She is 5 days status post emergent with a wound VAC in place. She was seen yesterday for evaluation of her elevated blood pressure for which she is taking labetalol. While in the emergency department yesterday she did have a headache but on reevaluation had gone away. She notes that anytime she sits up or stands the headache becomes worse causing nausea but no vomiting. No fevers. She also is worried because anytime she is operated with a headache her blood pressure is worsened. Review of Systems Constitutional: denies: Fever, Chills Eyes: reports: Photophobia. 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 - Present Medications Home Medications: Ambulatory Orders Medication Instructions Recorded Confirmed Aspirin Chewable [St Jovanny 81 mg PO DAILY 09/25/20 10/05/20 Aspirin] Labetalol [Trandate] 200 mg PO BID 09/25/20 10/05/20 Ibuprofen [Motrin] 600 mg PO Q6H PRN 10/05/20 10/05/20 oxyCODONE [Roxicodone] 5 mg PO Q6HR 10/05/20 10/05/20 - Allergies Allergies/Adverse Reactions: Allergies Allergy/AdvReac Type Severity Reaction Status Date / Time Sulfa (Sulfonamide Allergy Unknown Hives Verified 10/05/20 14:29 Antibiotics) - Social History Does the pt smoke?: No Smoking Status: Never smoker Does the pt drink ETOH?: No Does the pt have substance abuse?: No - Immunizations Immunizations are current?: Yes PD ED PE EXPANDED - General General: Alert, In Pain - Cardiac Cardiac: Regular Rate, Radial strong equal, Pedal strong equal, Cap refill < 2 sec. No: Murmur Present - Respiratory Respiratory: Clear to ausultation tony. No: Distress, Labored - Abdomen Abdomen: Normal Bowel sounds, Tender to palpation (Tenderness to palpation around the incision site as expected. Wound VAC is in place with moderate amount of serosanguineous drainage. No surrounding erythema induration.) - Back Back: Normal exam, Normal ROM - Neuro Neuro: Alert and Oriented X 3, CNII-XII intact, PERRL - GCS Eye Opening: Spontaneous Motor: Obeys Commands Verbal: Oriented Total: 15 Results - Vitals Vitals: Vital Signs - 24 hr 10/05/20 10/05/20 10/05/20 14:30 16:37 16:55 Temperature 36.8 C Heart Rate 70 61 63 Respiratory 18 18 18 Rate Blood Pressure 149/90 H 162/104 H 177/100 H O2 Saturation 96 100 98 10/05/20 10/05/20 10/05/20 17:07 17:22 17:27 Temperature Heart Rate 63 62 65 Respiratory 20 Rate Blood Pressure 158/92 H 154/90 H 147/81 H O2 Saturation 98 100 Oxygen O2 Source Room air - Labs Labs: Laboratory Tests 10/05/20 10/05/20 10/05/20 15:00 15:00 15:00 WBC 8.3 RBC 4.08 L Hgb 11.5 L Hct 34.8 L MCV 85.3 MCH 28.2 MCHC 33.0 RDW 13.2 Plt Count 358 MPV 9.2 Neut # (Auto) 6.1 Lymph # (Auto) 1.5 [place] # (Auto) 0.5 Eos # (Auto) 0.1 Baso # (Auto) 0.0 Absolute Nucleated RBC 0.00 Nucleated RBC % 0.0 PT 12.5 INR 1.1 Sodium 140 Potassium 4.1 Chloride 103 Carbon Dioxide 25 Anion Gap 12.0 BUN 12 Creatinine 0.9 Estimated GFR (MDRD) 76 L Glucose 90 Uric Acid Calcium 9.3 Magnesium 2.1 Total Bilirubin 0.6 AST 17 ALT 20 Alkaline Phosphatase 78 Total Protein 7.5 Albumin 3.3 Globulin 4.2 Albumin/Globulin Ratio 0.8 L Lipase 23 Urine Color Urine Clarity Urine pH Ur Specific [place] Urine Protein Urine Glucose (UA) Urine Ketones Urine Occult Blood Urine Nitrite Urine Bilirubin Urine Urobilinogen Ur Leukocyte Esterase Urine RBC Urine WBC Ur Squamous Epith Cells Urine Bacteria Ur Microscopic Review Urine Culture Comments U Random Total Protein 10/05/20 10/05/20 10/05/20 15:00 15:20 15:20 WBC RBC Hgb Hct MCV MCH MCHC RDW Plt Count MPV Neut # (Auto) Lymph # (Auto) [place] # (Auto) Eos # (Auto) Baso # (Auto) Absolute Nucleated RBC Nucleated RBC % PT INR Sodium Potassium Chloride Carbon Dioxide Anion Gap BUN Creatinine Estimated GFR (MDRD) Glucose Uric Acid 7.1 Calcium Magnesium Total Bilirubin AST ALT Alkaline Phosphatase Total Protein Albumin Globulin Albumin/Globulin Ratio Lipase Urine Color YELLOW Urine Clarity CLEAR Urine pH 7.5 Ur Specific [place] 1.015 Urine Protein NEGATIVE Urine Glucose (UA) NEGATIVE Urine Ketones NEGATIVE Urine Occult Blood MODERATE H Urine Nitrite NEGATIVE Urine Bilirubin NEGATIVE Urine Urobilinogen 0.2 (NORMAL) Ur Leukocyte Esterase NEGATIVE Urine RBC 6-10 H Urine WBC 0-3 Ur Squamous Epith Cells RARE Squamous Urine Bacteria None Seen Ur Microscopic Review INDICATED Urine Culture Comments NOT INDICATED U Random Total Protein 6 PD MEDICAL DECISION MAKING - ED course Complexity details: reviewed results, re-evaluated patient, d/w patient ED course: 25-year-old female presents the emergency department for evaluation of a postural headache that has been present now for 2 days. Worse when sitting up and standing. She is 5 days after an emergent for which she did have an epidural in place. Initially on exam the patient was free of headache as she was laying supine. We did sit her up and after about 2 minutes she began to have a severe throbbing frontal headache. I suspect that she may benefit from a blood patch and will ask anesthesia to evaluate. 1615: Anesthesia has completed the blood patch and patient has near full resolution of her headache. However on repeat evaluation her blood pressure remains very elevated in the 160-170 SBP range. This was discussed with on-call OB Dr. Najera. 20 mg of labetalol has been ordered as well as magnesium infusion preceded by a 4 g bolus. She is not hyperreflexic on exam and she has a normal neurological exam. Dr. Najera will come shortly to the bedside to right orders for further evaluation and management of her preeclampsia. Departure - Departure Disposition: [facility] DC/Xfer Clinical Impression: Pre-eclampsia Qualifiers: Trimester: third trimester Qualified Code(s): O14.93 - Unspecified pre- eclampsia, third trimester Headache Qualifiers: Headache type: unspecified Headache chronicity pattern: acute headache Intractability: not intractable Qualified Code(s): R51.9 - Headache, unspecified
[2020-10-05] MEDS ORDERED: SODIUM CHLORIDE 0.9% 1,000 ML IV STA (15:05)
[2020-10-05 15:15] LABS: INR 1.1 (0.8-1.2); PT - PROTHROMBIN TIME 12.5 secs (9.9-12.6)
[2020-10-05 15:16] LABS: BASOPHILS % (AUTO) 0.2 %; EOSINOPHILS # (AUTO) 0.1 10^3/uL (0.0-0.7); EOSINOPHILS % (AUTO) 1.1 %; HCT - HEMATOCRIT 34.8 % (37.0-47.0); HGB - HEMOGLOBIN 11.5 g/dL (12.0-16.0); LYMPHOCYTES # (AUTO) 1.5 10^3/uL (1.5-3.5); LYMPHOCYTES % (AUTO) 17.8 %; MEAN CORPUSCULAR HEMOGLOBIN 28.2 pg (27.0-31.0); MEAN CORPUSCULAR VOLUME 85.3 fL (81.0-99.0); MEAN PLATELET VOLUME 9.2 fL (7.9-10.8); MONOCYTES # (AUTO) 0.5 10^3/uL (0.0-1.0); MONOCYTES % (AUTO) 6.5 %; NEUTROPHILS # (AUTO) 6.1 10^3/uL (1.5-6.6); NEUTROPHILS % (AUTO) 73.6 %; PLT - PLATELET COUNT 358 10^3/uL (130-450); RED BLOOD COUNT 4.08 10^6/uL (4.20-5.40); RED CELL DISTRIBUTION WIDTH 13.2 % (12.0-15.0); WHITE BLOOD COUNT 8.3 x10^3/uL (4.8-10.8)
[2020-10-05 15:30] LABS: ALBUMIN 3.3 g/dL (3.2-5.5); ALBUMIN/GLOBULIN RATIO 0.8 (1.0-2.2); BILIRUBIN,TOTAL 0.6 mg/dL (0.2-1.0); CALCIUM 9.3 mg/dL (8.5-10.3); CREATININE 0.9 mg/dL (0.4-1.0); MAGNESIUM 2.1 mg/dL (1.7-2.8); POTASSIUM 4.1 mmol/L (3.5-5.0); TOTAL PROTEIN 7.5 g/dL (6.7-8.2)
[2020-10-05] MEDS ORDERED: LABETALOL 20 MG/4 ML SYRINGE IVP STA (16:55)
[2020-10-05] MEDS ORDERED: MAGNESIUM SULFATE 4 GRAM 4 GM/50 ML BAG IV ONE (16:58)
[2020-10-05] MEDS ORDERED: MAGNESIUM SULFATE IN WATER 20 GM/500 ML IV.SOLN IV SCH (17:00)
[2020-10-05 17:09] LABS: BILIRUBIN,URINE NEGATIVE (NEGATIVE); GLUCOSE, URINE (UA) NEGATIVE (NEGATIVE); KETONES,URINE (UA) NEGATIVE (NEGATIVE); LEUKOCYTE ESTERASE, URINE NEGATIVE (NEGATIVE); NITRITE,URINE NEGATIVE (NEGATIVE); OCCULT BLOOD,URINE MODERATE (NEGATIVE); PH,URINE 7.5 PH (5.0-7.5); PROTEIN,URINE NEGATIVE (NEGATIVE); UROBILINOGEN,URINE 0.2 (NORMAL) E.U./dL (NORMAL)
[2020-10-05 17:19] LABS: CLARITY,URINE CLEAR (CLEAR)
[2020-10-05 17:21] LABS: BACTERIA,URINE None Seen /HPF (None Seen); SQUAMOUS EPITHELIAL CELL,UR RARE Squamous (<= Few); WBC,URINE 0-3 /HPF (0-5)
--- NOTE | 2020-10-05 18:06 | HISTORY & PHYSICAL EXAMINATION ---
History and Physical - History and Physical Identification: Patient is a 25-year-old G1, P1 female who delivered on 29 September via . Chief complaint: Hypertension and headache History of present illness patient states today she developed blood pressures in the 160s over 100 range. She developed also headaches which were fairly marked in nature. She was seen in the emergency department at which time she was diagnosed of having a spinal headache this was treated with a blood patch. Her headache has drastically decreased however she now continues to have hypertension. She has a history of hypertension prior to which was treated with diuretics. During the she was treated with labetalol 100 mg p.o. twice daily. She was induced at 39 weeks because of her chronic hypertension which was worsening. Throughout her labor she developed intolerance of labor and had a section. Her evaluation during this admission did not show evidence of any elevated liver enzymes or elevated protein creatinine ratio. Patient return to the emergency department on 03 October with complaints of blood pressure elevations her labetalol was increased to 200 mg p.o. twice daily. She does have a history of a mother who had preeclampsia. Patient also was taking a baby aspirin daily during her to decrease the risk of preeclampsia. Past medical history is positive for asthma. Surgical history section Allergies sulfa Medications labetalol 200 mg p.o. twice daily. Social history: Patient is to an activating [employer] person. Family history is positive for mother with preeclampsia. Physical examination: Patient is well-developed well-nourished female she is no acute distress at this time. Her blood pressures in the ED have ranged from the 150s to 160s diastolics have been running in the 90s to 100s. She is afebrile. HEENT: Pupils equal round extraocular muscle intact Throat thyroids not enlarged Heart regular rate and rhythm Lung garcia are clear without rales or wheezes Back no spinal CVA tenderness Abdomen is nondistended bowel sounds are present. She has a wound VAC in place which appears to be functioning well at this time DTRs are 2-3+ There is no evidence of any clonus. See labs.Creatinine is 0.9 AST is 17 ALT is 20 platelets are 358. Protein creatinine ratio is pending at this time. Impression 1. 25-year-old female status post by 5 days 2. Late onset preeclampsia which is failing to respond to 200 mg of labetalol. Plan:start patient on mag sulfate 4 g loaded with 2 g an hour will continue with labetalol consider changing to Procardia.
[2020-10-05 18:36] LABS: B. PARAPERTUSSIS- RESP PCR PAN NOT DETECTED; B. PERTUSSIS- RESP PCR PANEL NOT DETECTED; C. PNEUMONIAE- RESP PCR PANEL NOT DETECTED; CORONAVIRUS 229E-RESP PCR NOT DETECTED; CORONAVIRUS HKU1-RESP PCR NOT DETECTED; CORONAVIRUS NL63-RESP PCR NOT DETECTED; CORONAVIRUS OC43-RESP PCR NOT DETECTED; HUMAN METAPNEUMOVIRUS NOT DETECTED; INFLUENZA A- RESP PCR PANEL NOT DETECTED; INFLUENZA B - RESP PCR PANEL NOT DETECTED; M. PNEUMONIAE- RESP PCR PANEL NOT DETECTED; PARAINFLUENZA VIRUS 1 NOT DETECTED; PARAINFLUENZA VIRUS 2 NOT DETECTED; PARAINFLUENZA VIRUS 3 NOT DETECTED; PARAINFLUENZA VIRUS 4 NOT DETECTED; RHINOVIRUS/ENTEROVIRUS NOT DETECTED; RSV- RESP PCR PANEL NOT DETECTED; SARS-CoV-2 -RESP PCR PANEL NOT DETECTED
[2020-10-05] MEDS: LACTATED RINGERS 1,000 ML IV SCH (18:51)
[2020-10-05] MEDS: MAGNESIUM SULFATE IN WATER 20 GM/500 ML IV.SOLN IV SCH (18:52)
[2020-10-05] MEDS ORDERED: LABETALOL 100 MG TABLET PO SCH (21:00)
[2020-10-06] MEDS: ACETAMINOPHEN 500 MG TABLET PO PRN ×3 (00:30→15:28)
[2020-10-06 00:40] LABS: ALBUMIN 3.1 g/dL (3.2-5.5); ALBUMIN/GLOBULIN RATIO 0.8 (1.0-2.2); BILIRUBIN,TOTAL 0.4 mg/dL (0.2-1.0); CALCIUM 8.2 mg/dL (8.5-10.3); CREATININE 0.7 mg/dL (0.4-1.0); POTASSIUM 3.6 mmol/L (3.5-5.0); TOTAL PROTEIN 7.2 g/dL (6.7-8.2)
[2020-10-06 00:43] LABS: MAGNESIUM 5.1 mg/dL (1.7-2.8)
[2020-10-06] MEDS: MAGNESIUM SULFATE IN WATER 20 GM/500 ML IV.SOLN IV SCH ×2 (03:14→13:37)
[2020-10-06] MEDS ORDERED: LABETALOL 100 MG TABLET PO ONE (03:23)
[2020-10-06 06:48] LABS: BASOPHILS % (AUTO) 0.3 %; EOSINOPHILS # (AUTO) 0.2 10^3/uL (0.0-0.7); EOSINOPHILS % (AUTO) 1.8 %; HCT - HEMATOCRIT 36.3 % (37.0-47.0); HGB - HEMOGLOBIN 11.8 g/dL (12.0-16.0); LYMPHOCYTES # (AUTO) 1.8 10^3/uL (1.5-3.5); LYMPHOCYTES % (AUTO) 20.4 %; MEAN CORPUSCULAR HEMOGLOBIN 27.5 pg (27.0-31.0); MEAN CORPUSCULAR HGB CONC 32.5 g/dL (32.0-36.0); MEAN CORPUSCULAR VOLUME 84.6 fL (81.0-99.0); MEAN PLATELET VOLUME 8.8 fL (7.9-10.8); MONOCYTES # (AUTO) 0.6 10^3/uL (0.0-1.0); MONOCYTES % (AUTO) 6.6 %; NEUTROPHILS # (AUTO) 6.1 10^3/uL (1.5-6.6); NEUTROPHILS % (AUTO) 70.2 %; PLT - PLATELET COUNT 377 10^3/uL (130-450); RED BLOOD COUNT 4.29 10^6/uL (4.20-5.40); RED CELL DISTRIBUTION WIDTH 13.3 % (12.0-15.0); WHITE BLOOD COUNT 8.7 x10^3/uL (4.8-10.8)
[2020-10-06 07:02] LABS: ALBUMIN 3.5 g/dL (3.2-5.5); ALBUMIN/GLOBULIN RATIO 0.8 (1.0-2.2); BILIRUBIN,TOTAL 0.5 mg/dL (0.2-1.0); CALCIUM 8.1 mg/dL (8.5-10.3); CREATININE 0.9 mg/dL (0.4-1.0); POTASSIUM 3.9 mmol/L (3.5-5.0)
[2020-10-06 07:13] LABS: MAGNESIUM 6.1 mg/dL (1.7-2.8)
[2020-10-06 07:15] LABS: CREATININE,URINE 34.8 mg/dL
[2020-10-06 07:17] LABS: TOTAL PROTEIN,URINE TIMED < 6 mg/dL
[2020-10-06] MEDS: LACTATED RINGERS 1,000 ML IV SCH (07:42)
[2020-10-06] MEDS: LABETALOL 100 MG TABLET PO SCH ×2 (09:16→21:09)
--- NOTE | 2020-10-06 09:48 | PROVIDER PROGRESS NOTE ---
Subjective - Prog Note Date Prog Note Date: 10/06/20 Prog Note Time: 09:46 - Subjective Pt reports feeling: Improved (Patient complains of generalized fatigue. This is probably secondary to her magnesium. Headache is resolved at this point.Patient would like to go home as soon as possible.) Objective - Vital Signs/Intake & Output Reviewed Vital Signs: Yes Vital Signs: Vital Signs x48h Temp Pulse Resp BP Pulse Ox 10/06/20 09:14 88 134/84 H 10/06/20 07:58 36.6 C 79 16 100 10/06/20 07:04 75 128/87 H 10/06/20 05:04 68 115/76 10/06/20 04:00 62 116/79 10/06/20 03:03 81 142/91 H 10/06/20 02:04 77 148/89 H 10/06/20 02:00 80 139/92 H Intake & Output: Intake & Output 10/03/20 10/04/20 10/05/20 10/06/20 23:59 23:59 23:59 23:59 Intake Total 1050 1713.75 Output Total 1500 2900 Balance -450 -1186.25 - Objective General Appearance: positive: No acute distress, Alert Respiratory: positive: Chest non-tender, No respiratory distress, Breath sounds nml Cardiovascular: positive: Regular rate & rhythm, No murmur Abdomen: positive: Non-tender (Wound VAC was removed. Incision is healing well. There is some mild bruising.), No organomegaly, Nml bowel sounds Back: negative: CVA tenderness (R), CVA tenderness (L) Extremities: negative: Calf tenderness, Baldev's sign/cords Reflexes: Knee (R): 2+ (Clonus seen bilaterally.), Knee (L): 2+ (Swelling of the ankles is markedly improved.) - Lab Results Fish Bones: 10/06/20 06:43 10/06/20 06:43 Other Labs: Lab Results x24hrs 10/06/20 10/06/20 10/06/20 Range/Units 06:43 06:43 06:31 WBC 8.7 (4.8-10.8) x10^3/uL RBC 4.29 (4.20-5.40) 10^6/uL Hgb 11.8 L (12.0-16.0) g/dL Hct 36.3 L (37.0-47.0) % MCV 84.6 (81.0-99.0) fL MCH 27.5 (27.0-31.0) pg MCHC 32.5 (32.0-36.0) g/dL RDW 13.3 (12.0-15.0) % Plt Count 377 (130-450) 10^3/uL MPV 8.8 (7.9-10.8) fL Neut # (Auto) 6.1 (1.5-6.6) 10^3/uL Lymph # (Auto) 1.8 (1.5-3.5) 10^3/uL [place] # (Auto) 0.6 (0.0-1.0) 10^3/uL Eos # (Auto) 0.2 (0.0-0.7) 10^3/uL Baso # (Auto) 0.0 (0.0-0.1) 10^3/uL Absolute Nucleated RBC 0.00 x10^3/uL Nucleated RBC % 0.0 /100WBC PT (9.9-12.6) secs INR (0.8-1.2) Sodium 140 (135-145) mmol/L Potassium 3.9 (3.5-5.0) mmol/L Chloride 101 (101-111) mmol/L Carbon Dioxide 25 (21-32) mmol/L Anion Gap 14.0 H (6-13) BUN 12 (6-20) mg/dL Creatinine 0.9 (0.4-1.0) mg/dL Estimated GFR (MDRD) 76 L (>89) Glucose 97 (70-100) mg/dL Uric Acid (2.6-7.2) mg/dL Calcium 8.1 L (8.5-10.3) mg/dL Magnesium 6.1 H* (1.7-2.8) mg/dL Total Bilirubin 0.5 (0.2-1.0) mg/dL AST 17 (10-42) IU/L ALT 21 (10-60) IU/L Alkaline Phosphatase 89 (42-121) IU/L Total Protein 8.0 (6.7-8.2) g/dL Albumin 3.5 (3.2-5.5) g/dL Globulin 4.5 H (2.1-4.2) g/dL Albumin/Globulin Ratio 0.8 L (1.0-2.2) Lipase (22-51) U/L Urine Color Urine Clarity (CLEAR) Urine pH (5.0-7.5) PH Ur Specific [place] (1.002-1.030) Urine Protein (NEGATIVE) mg/dL Urine Glucose (UA) (NEGATIVE) mg/dL Urine Ketones (NEGATIVE) mg/dL Urine Occult Blood (NEGATIVE) Urine Nitrite (NEGATIVE) Urine Bilirubin (NEGATIVE) Urine Urobilinogen (NORMAL) E.U./dL Ur Leukocyte Esterase (NEGATIVE) Urine RBC (0-5) /HPF Urine WBC (0-5) /HPF Ur Squamous Epith Cells (<= Few) Urine Bacteria (None Seen) /HPF Ur Microscopic Review Urine Culture Comments U Random Total Protein mg/dL Urine Creatinine 34.8 mg/dL Ur Total Protein Timed < 6 mg/dL Protein/Creatinin Ratio Not Reportable Nasal Adenovirus (PCR) Nasal B. parapertussis DNA (PCR) Nasal Coronavir 229E PCR Nasal Coronavir HKU1 PCR Nasal Coronavir NL63 PCR Nasal Coronavir OC43 PCR Nasal Enterovir/Rhinovir PCR Nasal Influenza B PCR Nasal Influenza A PCR Nasal Parainfluen 1 PCR Nasal Parainfluen 2 PCR Nasal Parainfluen 3 PCR Nasal Parainfluen 4 PCR Nasal RSV (PCR) Nasal B.pertussis DNA PCR Nasal C.pneumoniae (PCR) Obed Human Metapneumo PCR Nasal M.pneumoniae (PCR) Nasal SARS-CoV-2 (PCR) 10/06/20 10/05/20 10/05/20 Range/Units 00:19 17:06 15:20 WBC (4.8-10.8) x10^3/uL RBC (4.20-5.40) 10^6/uL Hgb (12.0-16.0) g/dL Hct (37.0-47.0) % MCV (81.0-99.0) fL MCH (27.0-31.0) pg MCHC (32.0-36.0) g/dL RDW (12.0-15.0) % Plt Count (130-450) 10^3/uL MPV (7.9-10.8) fL Neut # (Auto) (1.5-6.6) 10^3/uL Lymph # (Auto) (1.5-3.5) 10^3/uL [place] # (Auto) (0.0-1.0) 10^3/uL Eos # (Auto) (0.0-0.7) 10^3/uL Baso # (Auto) (0.0-0.1) 10^3/uL Absolute Nucleated RBC x10^3/uL Nucleated RBC % /100WBC PT (9.9-12.6) secs INR (0.8-1.2) Sodium 137 (135-145) mmol/L Potassium 3.6 (3.5-5.0) mmol/L Chloride 100 L (101-111) mmol/L Carbon Dioxide 25 (21-32) mmol/L Anion Gap 12.0 (6-13) BUN 12 (6-20) mg/dL Creatinine 0.7 (0.4-1.0) mg/dL Estimated GFR (MDRD) 102 (>89) Glucose 110 H (70-100) mg/dL Uric Acid (2.6-7.2) mg/dL Calcium 8.2 L (8.5-10.3) mg/dL Magnesium 5.1 H* (1.7-2.8) mg/dL Total Bilirubin 0.4 (0.2-1.0) mg/dL AST 17 (10-42) IU/L ALT 18 (10-60) IU/L Alkaline Phosphatase 74 (42-121) IU/L Total Protein 7.2 (6.7-8.2) g/dL Albumin 3.1 L (3.2-5.5) g/dL Globulin 4.1 (2.1-4.2) g/dL Albumin/Globulin Ratio 0.8 L (1.0-2.2) Lipase (22-51) U/L Urine Color Urine Clarity (CLEAR) Urine pH (5.0-7.5) PH Ur Specific [place] (1.002-1.030) Urine Protein (NEGATIVE) mg/dL Urine Glucose (UA) (NEGATIVE) mg/dL Urine Ketones (NEGATIVE) mg/dL Urine Occult Blood (NEGATIVE) Urine Nitrite (NEGATIVE) Urine Bilirubin (NEGATIVE) Urine Urobilinogen (NORMAL) E.U./dL Ur Leukocyte Esterase (NEGATIVE) Urine RBC (0-5) /HPF Urine WBC (0-5) /HPF Ur Squamous Epith Cells (<= Few) Urine Bacteria (None Seen) /HPF Ur Microscopic Review Urine Culture Comments U Random Total Protein 6 mg/dL Urine Creatinine mg/dL Ur Total Protein Timed mg/dL Protein/Creatinin Ratio Nasal Adenovirus (PCR) NOT DETECTED Nasal B. parapertussis DNA (PCR) NOT DETECTED Nasal Coronavir 229E PCR NOT DETECTED Nasal Coronavir HKU1 PCR NOT DETECTED Nasal Coronavir NL63 PCR NOT DETECTED Nasal Coronavir OC43 PCR NOT DETECTED Nasal Enterovir/Rhinovir PCR NOT DETECTED Nasal Influenza B PCR NOT DETECTED Nasal Influenza A PCR NOT DETECTED Nasal Parainfluen 1 PCR NOT DETECTED Nasal Parainfluen 2 PCR NOT DETECTED Nasal Parainfluen 3 PCR NOT DETECTED Nasal Parainfluen 4 PCR NOT DETECTED Nasal RSV (PCR) NOT DETECTED Nasal B.pertussis DNA PCR NOT DETECTED Nasal C.pneumoniae (PCR) NOT DETECTED Obed Human Metapneumo PCR NOT DETECTED Nasal M.pneumoniae (PCR) NOT DETECTED Nasal SARS-CoV-2 (PCR) NOT DETECTED 10/05/20 10/05/20 10/05/20 Range/Units 15:20 15:00 15:00 WBC (4.8-10.8) x10^3/uL RBC (4.20-5.40) 10^6/uL Hgb (12.0-16.0) g/dL Hct (37.0-47.0) % MCV (81.0-99.0) fL MCH (27.0-31.0) pg MCHC (32.0-36.0) g/dL RDW (12.0-15.0) % Plt Count (130-450) 10^3/uL MPV (7.9-10.8) fL Neut # (Auto) (1.5-6.6) 10^3/uL Lymph # (Auto) (1.5-3.5) 10^3/uL [place] # (Auto) (0.0-1.0) 10^3/uL Eos # (Auto) (0.0-0.7) 10^3/uL Baso # (Auto) (0.0-0.1) 10^3/uL Absolute Nucleated RBC x10^3/uL Nucleated RBC % /100WBC PT (9.9-12.6) secs INR (0.8-1.2) Sodium 140 (135-145) mmol/L Potassium 4.1 (3.5-5.0) mmol/L Chloride 103 (101-111) mmol/L Carbon Dioxide 25 (21-32) mmol/L Anion Gap 12.0 (6-13) BUN 12 (6-20) mg/dL Creatinine 0.9 (0.4-1.0) mg/dL Estimated GFR (MDRD) 76 L (>89) Glucose 90 (70-100) mg/dL Uric Acid 7.1 (2.6-7.2) mg/dL Calcium 9.3 (8.5-10.3) mg/dL Magnesium 2.1 (1.7-2.8) mg/dL Total Bilirubin 0.6 (0.2-1.0) mg/dL AST 17 (10-42) IU/L ALT 20 (10-60) IU/L Alkaline Phosphatase 78 (42-121) IU/L Total Protein 7.5 (6.7-8.2) g/dL Albumin 3.3 (3.2-5.5) g/dL Globulin 4.2 (2.1-4.2) g/dL Albumin/Globulin Ratio 0.8 L (1.0-2.2) Lipase 23 (22-51) U/L Urine Color YELLOW Urine Clarity CLEAR (CLEAR) Urine pH 7.5 (5.0-7.5) PH Ur Specific [place] 1.015 (1.002-1.030) Urine Protein NEGATIVE (NEGATIVE) mg/dL Urine Glucose (UA) NEGATIVE (NEGATIVE) mg/dL Urine Ketones NEGATIVE (NEGATIVE) mg/dL Urine Occult Blood MODERATE H (NEGATIVE) Urine Nitrite NEGATIVE (NEGATIVE) Urine Bilirubin NEGATIVE (NEGATIVE) Urine Urobilinogen 0.2 (NORMAL) (NORMAL) E.U./dL Ur Leukocyte Esterase NEGATIVE (NEGATIVE) Urine RBC 6-10 H (0-5) /HPF Urine WBC 0-3 (0-5) /HPF Ur Squamous Epith Cells RARE Squamous (<= Few) Urine Bacteria None Seen (None Seen) /HPF Ur Microscopic Review INDICATED Urine Culture Comments NOT INDICATED U Random Total Protein mg/dL Urine Creatinine mg/dL Ur Total Protein Timed mg/dL Protein/Creatinin Ratio Nasal Adenovirus (PCR) Nasal B. parapertussis DNA (PCR) Nasal Coronavir 229E PCR Nasal Coronavir HKU1 PCR Nasal Coronavir NL63 PCR Nasal Coronavir OC43 PCR Nasal Enterovir/Rhinovir PCR Nasal Influenza B PCR Nasal Influenza A PCR Nasal Parainfluen 1 PCR Nasal Parainfluen 2 PCR Nasal Parainfluen 3 PCR Nasal Parainfluen 4 PCR Nasal RSV (PCR) Nasal B.pertussis DNA PCR Nasal C.pneumoniae (PCR) Obed Human Metapneumo PCR Nasal M.pneumoniae (PCR) Nasal SARS-CoV-2 (PCR) 10/05/20 10/05/20 Range/Units 15:00 15:00 WBC 8.3 (4.8-10.8) x10^3/uL RBC 4.08 L (4.20-5.40) 10^6/uL Hgb 11.5 L (12.0-16.0) g/dL Hct 34.8 L (37.0-47.0) % MCV 85.3 (81.0-99.0) fL MCH 28.2 (27.0-31.0) pg MCHC 33.0 (32.0-36.0) g/dL RDW 13.2 (12.0-15.0) % Plt Count 358 (130-450) 10^3/uL MPV 9.2 (7.9-10.8) fL Neut # (Auto) 6.1 (1.5-6.6) 10^3/uL Lymph # (Auto) 1.5 (1.5-3.5) 10^3/uL [place] # (Auto) 0.5 (0.0-1.0) 10^3/uL Eos # (Auto) 0.1 (0.0-0.7) 10^3/uL Baso # (Auto) 0.0 (0.0-0.1) 10^3/uL Absolute Nucleated RBC 0.00 x10^3/uL Nucleated RBC % 0.0 /100WBC PT 12.5 (9.9-12.6) secs INR 1.1 (0.8-1.2) Sodium (135-145) mmol/L Potassium (3.5-5.0) mmol/L Chloride (101-111) mmol/L Carbon Dioxide (21-32) mmol/L Anion Gap (6-13) BUN (6-20) mg/dL Creatinine (0.4-1.0) mg/dL Estimated GFR (MDRD) (>89) Glucose (70-100) mg/dL Uric Acid (2.6-7.2) mg/dL Calcium (8.5-10.3) mg/dL Magnesium (1.7-2.8) mg/dL Total Bilirubin (0.2-1.0) mg/dL AST (10-42) IU/L ALT (10-60) IU/L Alkaline Phosphatase (42-121) IU/L Total Protein (6.7-8.2) g/dL Albumin (3.2-5.5) g/dL Globulin (2.1-4.2) g/dL Albumin/Globulin Ratio (1.0-2.2) Lipase (22-51) U/L Urine Color Urine Clarity (CLEAR) Urine pH (5.0-7.5) PH Ur Specific [place] (1.002-1.030) Urine Protein (NEGATIVE) mg/dL Urine Glucose (UA) (NEGATIVE) mg/dL Urine Ketones (NEGATIVE) mg/dL Urine Occult Blood (NEGATIVE) Urine Nitrite (NEGATIVE) Urine Bilirubin (NEGATIVE) Urine Urobilinogen (NORMAL) E.U./dL Ur Leukocyte Esterase (NEGATIVE) Urine RBC (0-5) /HPF Urine WBC (0-5) /HPF Ur Squamous Epith Cells (<= Few) Urine Bacteria (None Seen) /HPF Ur Microscopic Review Urine Culture Comments U Random Total Protein mg/dL Urine Creatinine mg/dL Ur Total Protein Timed mg/dL Protein/Creatinin Ratio Nasal Adenovirus (PCR) Nasal B. parapertussis DNA (PCR) Nasal Coronavir 229E PCR Nasal Coronavir HKU1 PCR Nasal Coronavir NL63 PCR Nasal Coronavir OC43 PCR Nasal Enterovir/Rhinovir PCR Nasal Influenza B PCR Nasal Influenza A PCR Nasal Parainfluen 1 PCR Nasal Parainfluen 2 PCR Nasal Parainfluen 3 PCR Nasal Parainfluen 4 PCR Nasal RSV (PCR) Nasal B.pertussis DNA PCR Nasal C.pneumoniae (PCR) Obed Human Metapneumo PCR Nasal M.pneumoniae (PCR) Nasal SARS-CoV-2 (PCR) Assessment/Plan - Problem List (1) Gestational hypertension Impression: Patient is roughly 1 week status post . She has chronic hypertension with superimposed gestational hypertension. Her blood pressures appear to be controlled on 300 mg of labetalol twice daily. Her swelling has improved. She has good reflexes therefore the chance of her being magnesium toxic is extremely remote. We will discontinue her mag at roughly 5:00.
[2020-10-07 08:33] VITALS: BP 133/81
[2020-10-07] MEDS: LABETALOL 100 MG TABLET PO SCH (08:58)
--- NOTE | 2020-10-07 09:13 | PROVIDER PROGRESS NOTE ---
Subjective - Prog Note Date Prog Note Date: 10/07/20 Prog Note Time: 09:09 - Subjective Pt reports feeling: Improved (Pt Gallo any BREWSTER. Voiding adn deficating. Desires to go home) Objective - Vital Signs/Intake & Output Reviewed Vital Signs: Yes Vital Signs: Vital Signs x48h Temp Pulse Resp BP Pulse Ox 10/07/20 08:30 36.8 C 86 16 133/81 H 100 10/07/20 06:10 37.1 C 93 16 128/83 H 97 10/07/20 02:00 36.7 C 79 16 127/73 99 Intake & Output: Intake & Output 10/04/20 10/05/20 10/06/20 10/07/20 23:59 23:59 23:59 23:59 Intake Total 1050 4597.083 900 Output Total 1500 6950 Balance -450 -7572.917 900 - Objective General Appearance: positive: No acute distress, Alert Respiratory: positive: Chest non-tender, No respiratory distress, Breath sounds nml Cardiovascular: positive: Regular rate & rhythm, No murmur, No gallop Abdomen: positive: Non-tender, No organomegaly, Other (Wound healing well) Back: negative: CVA tenderness (R), CVA tenderness (L) Extremities: negative: Calf tenderness, Baldev's sign/cords Neurologic/Psychiatric: positive: Oriented x3 Reflexes: Knee (R): 1+, Knee (L): 1+ - Lab Results Fish Bones: 10/06/20 06:43 10/06/20 06:43 Assessment/Plan - Problem List (1) Gestational hypertension Impression: Gestation Hypertension resolved. Pt is on Labetolol 3 00 mg bid. Send home. Discharge Meds Labetolol 300mg. decrease by 100 mg if bp less than 120/60. RTC 1 week Home BP monitoring bid
--- NOTE | 2020-10-07 09:15 | Discharge Plan ---
Discharge Plan Problem Reviewed?: Yes Disposition: Home, Self Care Condition: Good Diet: Regular Activity Restrictions: Activity as Tolerated Shower Restrictions: No Driving Restrictions: No Weight Bearing: Full Weight No Smoking: If you smoke, Please STOP! Call for help.
--- NOTE | 2020-10-07 11:05 | DISCHARGE SUMMARY ---
"Discharge Summary Admit Date: 10/05/20 Discharge Date: 10/07/20 Discharging Provider: Tom Najera MD Code Status: Attempt Resuscitation Discharge Facility Name: [facility] - DIAGNOSES Admission Diagnoses: Late onset preeclampsia Discharge Diagnoses with Status of Each Condition: Late onset Severe superimposed gestational hypertension Resolved. - HPI History of Present Illness: Patient is a 25-year-old female with a history of chronic hypertension. Prior to she was treated with diuretics. During her she was placed on labetalol 100 mg p.o. twice daily which controlled her pressures for the most part however at 39 weeks because of worsening blood pressures she was induced. During that time she had a secondary to intolerance of labor. She was discharged home on 100 mg of labetalol twice daily. Roughly a day to 2 days prior she was placed on 200 mg labetalol twice daily. The day of admission she was complaining of a severe headache as well as blood pressures in the 160s over 100 range. She was felt to have a spinal headache from her epidural and was treated with a blood Patch which resolved most of her headache but her blood pressure remained high. The suspicion of late onset preeclampsia was entertained and so she was admitted for magnesium sulfate. - CONSULTS | PROCEDURES Procedures: 1. Blood patch 2. Magnesium sulfate - HOSPITAL COURSE Hospital Course: Patient was admitted she had a blood patch mehta placed which improved her headache. However her blood pressure still remained elevated. Magnesium sulfate was initiated. That evening she had to have an additional 20 mg of IV labetalol given. It was decided to increase her labetalol to 300 mg twice daily which controlled her blood pressures. After 24 hours of magnesium sulfate this was discontinued. While in the hospital her swelling markedly improved. Her headache totally resolved. She did have a urine protein creatinine ratio which was noted to be negative thus meaning she did not have preeclampsia but gestational hypertension. She was discharged to home this morning on 300 mg of labetalol twice daily. She is to monitor blood pressures twice daily. She is return to clinic in 1 week.She was told should her pressures fall below 120/70 that she should withhold 100 mg from her daily dose of her labetalol. - ALLERGIES Allergies/Adverse Reactions: Allergies Allergy/AdvReac Type Severity Reaction Status Date / Time Sulfa (Sulfonamide Allergy Unknown Hives Verified 10/05/20 14:29 Antibiotics) - MEDICATIONS Home Medications: Ambulatory Orders Medication Instructions Recorded Confirmed Aspirin Chewable [St Jovanny 81 mg PO DAILY 09/25/20 10/05/20 Aspirin] Labetalol [Trandate] 200 mg PO BID 09/25/20 10/05/20 Ibuprofen [Motrin] 600 mg PO Q6H PRN 10/05/20 10/05/20 oxyCODONE [Roxicodone] 5 mg PO Q6HR 10/05/20 10/05/20 - PHYSICAL EXAM AT DISCHARGE General Appearance: positive: No acute distress, Alert Respiratory: positive: Chest non-tender, No respiratory distress Cardiovascular: positive: Regular rate & rhythm, No murmur Abdomen: positive: Non-tender, No organomegaly, Nml bowel sounds, No distention, Other (Wound VAC was removed and her incision is healing well.) Back: negative: CVA tenderness (R), CVA tenderness (L) Extremities: negative: Calf tenderness, Baldev's sign/cords Neurologic/Psychiatric: positive: Oriented x3 Reflexes: Knee (R): 1+, Knee (L): 1+ - LABS Result Diagrams: 10/06/20 06:43 10/06/20 06:43 - QUALITY (Female Hip Fx Only) Was patient sent home on osteoporosis medication?: No - FOLLOW UP Follow Up: 1 week"
== END 2020-10-07 09:48 | disposition home or self-care (01) | DRG 776 ==
LOC: ED 13:40 → UNDOADMIN 17:49 → FBP 17:49
PROVIDERS: ADMIT Obstetrics & Gynecology; ATTEND Obstetrics & Gynecology
DX: O11.5 Pre-existing hypertension with pre-eclampsia, complicating the puerperium (principal); O10.93 Unspecified pre-existing hypertension complicating the puerperium; Z20.822 Contact with and (suspected) exposure to COVID-19
CPT/HCPCS: 0202U; 36415; 62273; 80053; 81001; 82570; 83690; 83735; 84156; 84550; 85025; 85610; 96361; 96365; 96375; 99284; 99285; A9270; J7120; 81003; 87086; J3475